=== PATIENT | male | born 1935 | race Caucasian/White ===

== ENCOUNTER → 2016-10-21 | Outpatient (CLI) | payer OTHER ==
[~2016-10-21] MED LIST: ASPI81TA28 PO; ISOS30TA35 PO; ISS/10 PO; SIMV80TA2 PO; TNR25 PO
[2016-10-21 12:31] LABS: BASO % 0.5 %; BASO ABS # 0.04 K/uL (0-0.2); COMPLETE YES; EOS % 3.4 %; HEMATOCRIT 41.2 % (42-52); IG% 0.4 %; LYMPH % 35.5 %; MEAN CORPUSCULAR HEMOGLOBIN 31.5 pg (25-34); MEAN CORPUSCULAR HGB CONC 32.8 g/dl (32-36); MEAN PLATELET VOLUME 10.1 fL (7.4-10.4); MONO % 12.1 %; NEUT % 48.1 %; PLATELET COUNT 217 K/uL (130-400); RED BLOOD COUNT 4.29 M/uL (4.7-6.1); WHITE BLOOD COUNT 8.45 K/uL (4.8-10.8)
[2016-10-21 12:48] LABS: CALCIUM 8.7 mg/dl (8.5-10.1)
[2016-10-21 12:56] LABS: ALT/SGPT 29 U/L (12-78); BLOOD UREA NITROGEN 20 mg/dl (7-18); CARBON DIOXIDE 28 mmol/L (21-32); CHLORIDE 108 mmol/L (98-107); CHOLESTEROL 111 mg/dl (0-200); GLUCOSE 122 mg/dl (70-99); POTASSIUM 4.4 mmol/L (3.5-5.1); SODIUM 143 mmol/L (136-145); TRIGLYCERIDES 89 mg/dl (0-150); VERY LOW DENSITY LIPOPROT CALC 18 mg/dl
[2016-10-21 13:01] LABS: AST/SGOT 21 U/L (15-37); CHOLESTEROL/HDL RATIO 2.8; HDL CHOLESTEROL 39 mg/dl; LDL CHOLESTEROL CALCULATED 54 mg/dl
[2016-10-21 13:21] LABS: ESTIMATED AVERAGE GLUCOSE 140 mg/dl; HA1C FLAG Normal (Normal)
== END | disposition home or self-care (01) ==
LOC: C.LABBFT 07:37
PROVIDERS: ATTEND Internal Medicine
DX: E11.9 Type 2 diabetes mellitus without complications (principal); M10.9 Gout, unspecified; D64.9 Anemia, unspecified; E78.5 Hyperlipidemia, unspecified

== ENCOUNTER → 2016-11-05 | Outpatient (CLI) | payer OTHER ==
[2016-11-09 09:50] LABS: NICOTINE URINE 7 ng/mL
--- NOTE | 2016-11-10 09:14 | CODING QUERY MEDICAL NECESSITY ---
SUPPORTING DIAGNOSIS NEEDED Yolanda OROZCO, A supporting diagnosis is required for the test/procedure performed on this patient in order for us to be reimbursed by the patient's insurance. Please provide a supporting diagnosis for the following test/procedure listed below next to the test name along with your signature. *If there is no additional diagnosis for this patient that would support the following test/procedure please document that below next to the test/procedure. Test(s)/Procedure(s) that require a supporting diagnosis: * ([id number]) NICOTINE AND CONTININE URINE DIAGNOSIS: DATE OF SERVICE: 11/05/16 Provider Signature: Date: Thank you Yeyo Menchaca Health Information Management Once completed, please kindly fax back to [phone] For questions please call [phone]
== END | disposition home or self-care (01) ==
LOC: C.LABBFT 08:02
PROVIDERS: ATTEND Physician Assistant
DX: Z01.818 Encounter for other preprocedural examination (principal); Z72.0 Tobacco use

== ENCOUNTER → 2016-12-01 | Outpatient (CLI) | payer OTHER ==
[2016-12-01 18:28] LABS: BASO % 0.4 %; BASO ABS # 0.04 K/uL (0-0.2); COMPLETE YES; EOS % 3.4 %; HEMATOCRIT 43.3 % (42-52); IG% 0.5 %; LYMPH % 40.9 %; LYMPH ABS # 3.77 K/uL (1.2-3.4); MEAN CELL VOLUME 92.1 fL (80-100); MEAN CORPUSCULAR HGB CONC 32.6 g/dl (32-36); MEAN PLATELET VOLUME 9.9 fL (7.4-10.4); MONO % 13.9 %; NEUT % 40.9 %; PLATELET COUNT 246 K/uL (130-400); WHITE BLOOD COUNT 9.21 K/uL (4.8-10.8)
[2016-12-01 18:37] LABS: PROTHROMBIN TIME (PATIENT) 10.4 SECONDS (9.0-12.0)
[2016-12-01 18:45] LABS: BLOOD UREA NITROGEN 21 mg/dl (7-18); BUN/CREATININE RATIO 19.2 (10-20); CARBON DIOXIDE 26 mmol/L (21-32); CHLORIDE 108 mmol/L (98-107); GLUCOSE 83 mg/dl (70-99); SODIUM 140 mmol/L (136-145)
== END | disposition home or self-care (01) ==
LOC: C.LAB 17:01
PROVIDERS: ATTEND Physician Assistant
DX: Z01.812 Encounter for preprocedural laboratory examination (principal); H02.831 Dermatochalasis of right upper eyelid; H02.834 Dermatochalasis of left upper eyelid

== ENCOUNTER → 2016-12-12 | Day surgery (SDC) | payer OTHER ==
[2016-12-04 08:29] VITALS: Ht 170.2 cm; Wt 81.8 kg
[~2016-12-12] VITALS: Ht 170.2 cm; Wt 81.8 kg
[~2016-12-12] MED LIST changes: +ACETAMINOPHEN 325 MG TAB PO PRN; +ARTIFICIAL TEARS OP OINT 3.5 GM TUBE ONE; +ATROPINE SULFATE 0.1 MG/ML 5ML SYR IV PRN; +BACITRACIN OINT 15 GM TUBE ONE; +BACITRACIN OP OINT 3.5 GM TUBE ONE; +CEFAZOLIN 2000 MG/60 ML D5W IV SCH; +DEXAMETHASONE SOD INJ 4 MG/ML VIAL ONE; +EpHEDrine SULFATE 50MG/5ML SYR ONE; +EpHEDrine SULFATE INJ 50 MG/ML AMP IV PRN; +FENTANYL CITRATE INJ 50 MCG/1 ML 2 ML VIAL IV PRN; +FENTANYL CITRATE INJ 50 MCG/1 ML 2 ML VIAL ONE; +GENTIAN VIOLET TOP SOLN DROP CHARGE TOP ONE; -ISOS30TA35 PO; +LACTATED RINGER'S 1000ML 1,000 ML IV SCH; +LIDOCAINE HCL 2% 2 ML VIAL (20MG/ML) ONE; +LIDOCAINE/EPINEPHRINE 2% 1:200,000 20 ML SDV INJ ONE; +METOCLOPRAMIDE HCL INJ 5 MG/ML 2 ML VIAL IV PRN; +MIDAZOLAM HCL 1 MG/ML 2ML VIAL ONE; +ONDANSETRON INJ 2 MG/ML 2 ML VIAL IV PRN; +ONDANSETRON INJ 2 MG/ML 2 ML VIAL ONE; +OXYCODONE/ACETAMINOPHEN 5-325 TAB PO PRN; +POVIDONE-IODINE OP SOLN 30 ML BTL TOP ONE; +PROPOFOL IV EMULSION 10 MG/ML 20 ML VIAL IV ONE; +SODIUM CHLORIDE 0.9% 1000ML 1,000 ML IV SCH
--- NOTE | 2016-12-12 08:47 | History & Physical Bridge - [place] ---
H&P Re-Evaluation Bridge Note: I have examined the patient, reviewed the History & Physical and in the interval since the performance of the History & Physical I have noted the following changes of clinical significance: No changes noted
--- NOTE | 2016-12-12 09:58 | [facility] Post Operative Brief Note ---
Immediate Operative Summary Operative Date Dec 12, 2016. Pre-Operative Diagnosis Dermatochalasis Post-Operative Diagnosis Same Procedure(s) Performed Bilateral Upper Blepharoplasty Surgeon Dr. Ann Loco MD Blower Insulator Surgeon(s) Ann Guerrero PA-C Estimated Blood Loss 1 Findings none Specimens none Anesthesia general Complication(s) None Disposition Recovery Room / PACU
--- NOTE | 2016-12-12 10:03 | Discharge Instructions ---
Discharge Instructions Date of Service Dec 12, 2016. Admission Reason for Admission: Dermatochalasis Discharge Discharge Diagnosis / Problem: dermatochalasis Discharge Goals Goal(s): Decrease discomfort Activity Recommendations Activity Limitations: per Instructions/Follow-up section ACTIVITY RECOMMENDATIONS: __Normal activities _x_No bending, lifting or straining __No driving __Driving allowed when you are off pain medications _x_Walking permitted __You should have help at home for ___ days DRESSINGS: _x_No dressings required __Keep dressings dry/in place until first office visit __Remove dressings ___ and leave dressings off __Apply ice ___ days __Remove dressings and reapply garment _x_Apply antibiotic ointment that was prescribed to you to wounds 3-4 times/day until complete BATHING: __Keep dressings dry _x_Sponge bathing permitted __Showering permitted _x_No swimming, hot tubs or soaking in a tub MEDICATIONS: Resume previous medications unless instructed otherwise by your surgeon. _x_Do not use aspirin, Motrin, Advil or Ibuprofen as these may promote bleeding. Please use Tylenol. _x_Prescription(s) provided: pain medication and antibiotic ointment were provided at your last office visit OTHER INSTRUCTIONS: __Record drain output 2-3 times per day SPECIAL CARE INSTRUCTIONS: * It is normal to have a mild fever after surgery. If your temperature is higher than 101.5 degrees F, please call the office at [phone]. * Constipation is a typical side effect of pain medication. An over-the- counter stool softener will help relieve this. * Leaking around surgical drains may occur and should not cause concern. Sometimes these drains become clogged. If this happens, remove the bulb and milk the clot out of the tube, then replace the bulb. * Drainage from wounds after liposuction is normal and should be expected. Garments will become soiled. You should protect furniture and bedding. This drainage should mostly subside within 2-3 days. Leave garments in place unless instructed to remove them. * If you have unusual drainage from a wound or are concerned you have an infection or have any questions or concerns, please call the office at [phone]. FOLLOW UP VISIT: If not already scheduled, please call the office, , when you return home after surgery to schedule an appointment to be seen in _3__ days. . Current Hospital Diet Patient's current hospital diet: Discharge Diet Recommended Diet: Regular Diet Procedures Procedures Performed: Bilateral Upper Blepharoplasty Pending Studies Studies pending at discharge: no Laboratory Results Hemoglobin A1c Test 10/21/16 07:40 Range/Units Estimated Average Glucose 140 mg/dl Hemoglobin A1c 6.5 H 4.5-5.6 % Lipid Panel Test 10/21/16 07:40 Range/Units Triglycerides Level 89 0-150 mg/dl Cholesterol Level 111 0-200 mg/dl HDL Cholesterol 39 mg/dl Cholesterol/HDL Ratio 2.8 LDL Cholesterol, Calculated 54 mg/dl Medical Emergencies . Who to Call and When: Medical Emergencies: If at any time you feel your situation is an emergency, please call 911 immediately. . Non-Emergent Contact Non-Emergency issues call your: Primary Care Provider, Surgeon . "Provider Documentation" section prepared by Faustina Guerrero. . VTE Core Measure Inpt VTE Proph given/why not?: SCD's [place] Drug Monitoring Program Search Results: no issues identified
--- NOTE | 2016-12-12 10:55 | Anesthesia Progress Nt - [facility] ---
Anesthesia Post Op Note Date & Time Dec 12, 2016 at 10:55 Vital Signs Pain Intensity: 0 Vital Signs Past 12 Hours Date Time Temp Pulse Resp B/P (MAP) Pulse Ox O2 Delivery O2 Flow Rate FiO2 12/12/16 10:39 36.6 12/12/16 10:36 139/80 (97) 12/12/16 10:35 62 9 12/12/16 10:35 61 9 93 12/12/16 10:31 132/79 (88) 12/12/16 10:31 Room Air 12/12/16 10:30 61 17 96 12/12/16 10:30 61 17 12/12/16 10:26 132/75 (84) 12/12/16 10:25 63 17 12/12/16 10:25 63 17 97 12/12/16 10:20 62 9 134/76 (89) 97 12/12/16 10:20 62 9 12/12/16 10:15 61 12 132/73 (87) 97 12/12/16 10:15 60 12 12/12/16 10:11 129/68 (76) 12/12/16 10:10 58 12 12/12/16 10:10 58 12 97 12/12/16 10:06 133/72 (101) 12/12/16 10:05 66 17 12/12/16 10:05 65 17 97 12/12/16 10:02 134/77 (85) 12/12/16 10:00 36.4 63 16 134/77 98 Diffusion Mask 5 12/12/16 07:31 36.3 55 16 112/67 (82) 55 Room Air Notes Mental Status: alert / awake / arousable, participated in evaluation Pt Amnestic to Procedure: Yes Nausea / Vomiting: adequately controlled Pain: adequately controlled Airway Patency, RR, SpO2: stable & adequate BP & HR: stable & adequate Hydration State: stable & adequate Anesthetic Complications: no major complications apparent
[2016-12-12 11:40] VITALS: BP 145/78; PULSE 59; TEMP 36.4; O2SAT 93
--- NOTE | 2016-12-13 08:19 | OPERATIVE REPORT ---
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 POSTOPERATIVE DIAGNOSIS: Same. PROCEDURE: Bilateral noncosmetic upper blepharoplasty. SURGEON: Dr. Isidra Loco. [employer] DRILLING MACHINE OPERATOR: Faustina Guerrero PA-C. ANESTHESIA: General. COMPLICATIONS: None. INDICATION FOR THE PROCEDURE: The patient is a 81-year-old male who presented to my office with visual field obstruction and failed visual field testing as a result of excess skin of his upper eyelids. After discussion, I felt he would be a candidate for noncosmetic upper blepharoplasty in an effort to improve his visual estes. BRIEF DESCRIPTION OF THE PROCEDURE: The risks, benefits and alternatives of the procedure were explained to the patient, who agreed and signed consent. He was identified and marked in the preoperative holding area. He was brought to the operating room, positioned supine and placed under general anesthesia without incident. Surgical site was prepped and draped sterilely. A time-out procedure was performed. Surgical site markings were applied. Inferior aspects of the incisional markings were applied along the supratarsal crease bilaterally, which measured 8 mm above the ciliary margin and midpupillary line. Due to significant excess skin in the lateral canthal area, this incision was carried out into the holy cross's feet of the lateral canthal area. Medially, the incision was made such to avoid crossing the medial punctum. A trapezoidal shaped incision was marked. This was marked greater than 1 cm inferior to the lateral tail of the brow. Prior to beginning the procedure, corneal protectors with Lacri-Lube were placed. 1% lidocaine with epinephrine was used to anesthetize the upper eyelids bilaterally. I began with the left side. A 15 blade scalpel was used to make the trapezoidal shaped incision. The skin was elevated off of the underlying orbicularis musculature using electrocautery. Hemostasis was achieved with electrocautery. There was minimal medial fat herniation noted on exam and therefore, I did not open the medial compartment. 6-0 nylon sutures were used to reapproximate the incisions, taking a bite of orbicularis muscle with each suture. A similar procedure was undertaken on the right side. There was excellent symmetry between the sides following the procedure. Corneal protectors were removed and the eyes were irrigated with BSS. Bacitracin ophthalmic ointment was applied. The procedure was tolerated well. The patient was awakened and transferred to the recovery room in satisfactory condition. No complications. I attest to the content of the Intraoperative Record and any orders documented therein. Any exception s are noted below.
== END | disposition home or self-care (01) ==
LOC: X.SURG 07:19
PROVIDERS: ATTEND Plastic Surgery
DX: H02.834 Dermatochalasis of left upper eyelid (principal); H02.831 Dermatochalasis of right upper eyelid; I71.4 Abdominal aortic aneurysm, without rupture; D64.9 Anemia, unspecified; I25.10 Atherosclerotic heart disease of native coronary artery without angina pectoris; I25.2 Old myocardial infarction; I10 Essential (primary) hypertension; E78.00 Pure hypercholesterolemia, unspecified; E11.9 Type 2 diabetes mellitus without complications; M10.9 Gout, unspecified; F17.210 Nicotine dependence, cigarettes, uncomplicated; Z95.5 Presence of coronary angioplasty implant and graft; Z79.82 Long term (current) use of aspirin; Z79.899 Other long term (current) drug therapy

== ENCOUNTER → 2017-04-30 | Outpatient (CLI) | payer OTHER ==
[~2017-04-30] MED LIST changes: -ACETAMINOPHEN 325 MG TAB PO PRN; -ARTIFICIAL TEARS OP OINT 3.5 GM TUBE ONE; -ASPI81TA28 PO; -ATROPINE SULFATE 0.1 MG/ML 5ML SYR IV PRN; -BACITRACIN OINT 15 GM TUBE ONE; -BACITRACIN OP OINT 3.5 GM TUBE ONE; -CEFAZOLIN 2000 MG/60 ML D5W IV SCH; -DEXAMETHASONE SOD INJ 4 MG/ML VIAL ONE; -EpHEDrine SULFATE 50MG/5ML SYR ONE; -EpHEDrine SULFATE INJ 50 MG/ML AMP IV PRN; -FENTANYL CITRATE INJ 50 MCG/1 ML 2 ML VIAL IV PRN; -FENTANYL CITRATE INJ 50 MCG/1 ML 2 ML VIAL ONE; -GENTIAN VIOLET TOP SOLN DROP CHARGE TOP ONE; -LACTATED RINGER'S 1000ML 1,000 ML IV SCH; -LIDOCAINE HCL 2% 2 ML VIAL (20MG/ML) ONE; -LIDOCAINE/EPINEPHRINE 2% 1:200,000 20 ML SDV INJ ONE; -METOCLOPRAMIDE HCL INJ 5 MG/ML 2 ML VIAL IV PRN; -MIDAZOLAM HCL 1 MG/ML 2ML VIAL ONE; -ONDANSETRON INJ 2 MG/ML 2 ML VIAL IV PRN; -ONDANSETRON INJ 2 MG/ML 2 ML VIAL ONE; -OXYCODONE/ACETAMINOPHEN 5-325 TAB PO PRN; -POVIDONE-IODINE OP SOLN 30 ML BTL TOP ONE; -PROPOFOL IV EMULSION 10 MG/ML 20 ML VIAL IV ONE; -SODIUM CHLORIDE 0.9% 1000ML 1,000 ML IV SCH
[2017-04-30 12:17] LABS: BASO % 0.5 %; BASO ABS # 0.04 K/uL (0-0.2); COMPLETE YES; EOS % 2.6 %; HEMATOCRIT 41.1 % (42-52); IG% 0.2 %; LYMPH % 33.1 %; LYMPH ABS # 2.93 K/uL (1.2-3.4); MEAN CELL VOLUME 96.7 fL (80-100); MEAN CORPUSCULAR HEMOGLOBIN 31.8 pg (25-34); MEAN CORPUSCULAR HGB CONC 32.8 g/dl (32-36); MEAN PLATELET VOLUME 10.3 fL (7.4-10.4); MONO % 13.3 %; NEUT % 50.3 %; PLATELET COUNT 217 K/uL (130-400); RED BLOOD COUNT 4.25 M/uL (4.7-6.1); WHITE BLOOD COUNT 8.86 K/uL (4.8-10.8)
[2017-04-30 12:25] LABS: ESTIMATED AVERAGE GLUCOSE 140 mg/dl; HA1C FLAG Normal (Normal)
[2017-04-30 12:27] LABS: ALT/SGPT 35 U/L (12-78); AST/SGOT 24 U/L (15-37); BLOOD UREA NITROGEN 16 mg/dl (7-18); CALCIUM 8.6 mg/dl (8.5-10.1); CARBON DIOXIDE 26 mmol/L (21-32); CHLORIDE 107 mmol/L (98-107); CHOLESTEROL 120 mg/dl (0-200); CREATININE 1.11 mg/dl (0.60-1.40); GLUCOSE 121 mg/dl (70-99); POTASSIUM 4.2 mmol/L (3.5-5.1); SODIUM 139 mmol/L (136-145)
[2017-04-30 12:36] LABS: CHOLESTEROL/HDL RATIO 2.6; FERRITIN 199.3 ng/ml (8.0-388.0); HDL CHOLESTEROL 47 mg/dl; LDL CHOLESTEROL CALCULATED 58 mg/dl; TRIGLYCERIDES 73 mg/dl (0-150); VERY LOW DENSITY LIPOPROT CALC 15 mg/dl
== END | disposition home or self-care (01) ==
LOC: C.LABBFT 07:23
PROVIDERS: ATTEND Internal Medicine
DX: E78.00 Pure hypercholesterolemia, unspecified (principal); E11.9 Type 2 diabetes mellitus without complications; D64.9 Anemia, unspecified

== ENCOUNTER → 2017-10-14 | Outpatient (CLI) | payer OTHER | END | disposition home or self-care (01) | LOC: C.LABBFT 07:45 | PROVIDERS: ATTEND Internal Medicine Cardiovascular Disease | DX: I25.10 Atherosclerotic heart disease of native coronary artery without angina pectoris (principal) ==

== ENCOUNTER 2025-01-02 14:57 | Inpatient (IN) ==
[2025-01-02] MEDS ORDERED: MoRPHine SULFATE 2 MG/ML CARP IV PRN (15:07)
[2025-01-02] MEDS: ONDANSETRON INJ 2 MG/ML 2 ML VIAL IV STA (15:16)
[2025-01-02] MEDS: SODIUM CHLORIDE 0.9% 500 ML IV SCH (15:16)
[2025-01-02] MEDS: MoRPHine SULFATE 2 MG/ML CARP IV STA (15:16)
--- NOTE | 2025-01-02 15:21 | XRay Report ---
XR chest 1V portable CLINICAL HISTORY: Trauma COMPARISON STUDY: 01/07/2021 FINDINGS: Stable mild cardiomegaly without pulmonary vascular congestion. Inspiration is shallow. No consolidation or pleural effusion seen. No pneumothorax. IMPRESSION: No acute findings seen. ACT 112: Negative or not required by law. Electronically signed by: Ciro Niño M.D. 01/02/2025 3:20 PM
[2025-01-02] MEDS: OPTIRAY 320 100ml IV ONE (15:24)
--- NOTE | 2025-01-02 15:28 | Emergency Department Note ---
Impression & Plan SOB (shortness of breath), Elevated troponin, Right rib fracture, Fall, Acute electrocardiogram changes, Leukocytosis ED Provider Note NAME: IAIN MARTÍNEZ AGE: 89 SEX: M : 1935 ARRIVES VIA: Walk-In INFORMANT: [Patient] ED PROVIDER(S): [Ash Bejarano MD] CHIEF COMPLAINT: Trauma HISTORY OF PRESENT ILLNESS: The patient is an 89-year-old male who states he fell around 3 or 4 feet off of a ladder onto his back. No loss of consciousness. He was trimming a tree when this occurred. He is on aspirin but no other stronger blood thinners. The patient states that initially, he was not in too much pain but, in the last hour or so, he has had increasing pain in the right lateral ribs and it hurts to take a breath and actually takes away his breath. There was no complaints of neck pain, mid back pain, abdominal pain. No numbness or tingling in the extremities. No pain in the upper or lower extremities. PMHx/PSHx/Social Hx: See Below PHYSICAL EXAM: Primary Survey Airway: Intact Breathing: Breath sounds equal bilaterally. No respiratory distress Circulation: Skin warm, capillary refill less than 2 seconds Disability: Pupils equal and reactive to light Motor Function: Moves all extremities. Sensory: No deficits Secondary Survey GEN: Well developed and well-nourished HEAD: Normocephalic, atraumatic EYES: Pupils round and reactive to light, conjunctiva clear, extraocular movements intact ENT: No fluid in external acoustic canals, nares patent, oropharynx clear NECK: Midline trachea, c-collar in place. HEART: Regular rate and rhythm LUNGS: Clear to auscultation bilaterally CHEST: Chest wall is somewhat tender over the right lateral lower ribs, there is no contusion or crepitus. ABD: No contusions, soft, non-tender, no distention PELVIS: Stable to rock BACK: No step offs or deformities, T-L spine non tender EXT: Moving all extremities well, no gross deformities NEURO: No focal motor deficits, no sensory deficits DIFFERENTIAL DIAGNOSIS: Rib fracture, pneumothorax, pulmonary contusion, thoracic or lumbar fracture, intra-abdominal injury, C-spine injury, intracranial injury, among others. EMERGENCY DEPARTMENT PROCEDURES: C-spine clinically cleared at 1605, once the CT imaging returned. MEDICAL DECISION MAKING: There is a mild leukocytosis, this could be consistent with infection or just the stress of his presentation. There is a very subtle anemia with a hemoglobin of 13.2. There was a normal platelet count. No coagulopathy. There was a slight elevation of the creatinine indicating some mild dehydration. No electrolyte abnormality in need of emergent correction. No worrisome liver enzyme elevation. No evidence for pancreatitis. ECG shows a sinus rhythm with some T wave inversions and subtle depressions across the anterior leads. These changes were new. No ST elevation. Cardiac enzyme testing x 2 is somewhat elevated but stable. Chest x-ray did not show any pulmonary injury or pneumothorax. Brain CT showed no acute bleed or mass effect. C-spine CT showed no acute fracture. Thoracic and lumbar CTs did not show any acute fracture. Chest and abdominal CT scans showed 4 right-sided rib fractures without pneumothorax or pulmonary contusion. No intra-abdominal traumatic process found. On exam, the patient was not hypoxic or toxic. He complained of right lateral lower rib pain. The patient received IV morphine for pain, IV saline for hydration. He was given IV Zofran for nausea. He was given IV Toradol and IV Tylenol. I did speak with cardiology. Given the troponin elevation, given the ECG changes, observation, cardiac monitoring was felt warranted. The patient has fallen. He has suffered 4 rib fractures. He has some ECG changes and a mild elevation to the troponin. Given the findings, given his age and history, admission/observation is warranted. I spoke with the patient and his family. I spoke with case management, the on- call hospitalist was consulted. Prior/Outside records/notes reviewed: None ECG per my interpretation: Indication was trauma. The ECG shows a normal sinus rhythm with a rate of 63. There are some T wave inversions in the anterior leads. There is no ST elevation, no PVCs. The QTc is 446. Compared to an ECG from 07 January 2021, the T wave inversions anteriorly are new. Repeat ECG per my interpretation: Indication was shortness of breath and chest pain. The ECG shows a sinus bradycardia with a rate of 59. There are some ST depressions and T wave inversions in the anterior leads. No ST elevation. No PVCs. The QTc is 429. Compared to the earlier ECG today, the T wave changes appear similar. Continuous Cardiac Monitoring per my interpretation: An order was placed for continuous cardiac monitoring. The monitor shows a rate of 60 with normal sinus rhythm. Imaging/x-ray results per my interpretation: Chest x-ray shows a poor inspiratory effort. There is no obvious pulmonary contusion, no pneumothorax, no rib fracture. Chronic Medical/Social conditions affecting care: Advanced age. Care/Management discussed with: Case management, the on-call hospitalist. Cardiology-Dr. Ruff. Level of care consideration(s): After review of the information above and other included data: --I believe the patient requires escalation of care to admission Critical Care Note: I have personally spent 41 minutes of critical care time in the direct management of this patient. This includes bedside care, interpretation of diagnostic studies, and testing, discussion with consultants, patient, and family members, and other required patient management activities. This 41 minutes is in excess of all separately billable procedures. DISPOSITION: Admission Past Med/Surg History Problem List Leukocytosis (Acute) Acute electrocardiogram changes (Acute) Fall (Acute) Right rib fracture (Acute) Elevated troponin (Acute) SOB (shortness of breath) (Acute) Pancreatic abnormality Elevated troponin Ribs, multiple fractures Exertional chest pain Right inguinal pain Back pain Screening for prostate cancer Vitamin D deficiency Heart disease (Chronic) Hypotension Pneumonia Gout Dermatochalasis of both eyelids HTN (hypertension) Type 2 diabetes mellitus Hyperlipidemia Hypothyroidism Encounter for pre-operative examination History of PTCA CAD (coronary artery disease) Actinic keratosis AAA (abdominal aortic aneurysm) BEING MONITORED YEARLY (DR. CEE) Medical History History of kidney stones NO SURGERY Borderline diabetes History of skin cancer Hypothyroidism Myocardial Infarction 1994 Hypertension Hyperlipidemia History of COVID-12 MARCH 2020 (NO SYMPTOMS) Hx of gout Surgical History History of cataract surgery left cataract History of colonoscopy History of tooth extraction Chalazion of both eyes EXCISION History of cardiac cath NO STENTS (1994) Family History Father Coronary heart disease Myocardial infarction Mother No problems noted. Other Diabetes No family history of adverse response to anesthesia Denies family history of Colon cancer Ovarian cancer Prostate cancer Breast cancer Social History Smoking Status: Never smoker Tobacco Type: Cigars Age Started Using Tobacco: 22; Cigarettes Per Day: 2 CIGARS DAILY; Second Hand Exposure: No; Do You Dip or Chew Tobacco: Yes (advised npo); Hx Alcohol Use: Yes Alcohol type: beer Alcohol Intake Frequency Comment: social Hx Substance Use: No Preferred Language: Turkish Communication Ability: Effective Visual Impairment: No Limitations Hearing Ability: Normal Oxygen System Tester Required: No Beliefs That Will Affect Care: None marital status: / Current Living Situation: Alone current occupational status: retired Feels Safe at Home: Yes Childhood Exposure to Second-Hand Smoke: Yes Dental Care, Regularly: Yes Physical Activity Frequency: 3-4 Times per Week Physical Activity Frequency Comment: Very active Seatbelt Use: always Sunscreen Use: No Assistive Devices: Glasses Allergies Allergies Allergy/AdvReac Type Severity Reaction Status Date / Time No Known Drug Allergies Allergy Verified 11/17/24 08:13 Home Meds Home Medications Medication Instructions Recorded Confirmed aspirin 81 mg tablet,delayed 81 mg PO QAM 01/07/21 11/17/24 release (Sujey Low Dose Aspirin) cholecalciferol (vitamin D3) 50 50 mcg PO DAILY 11/20/21 11/17/24 mcg (2,000 unit) capsule Previous Rx's Medication Instructions Recorded atenolol 25 mg tablet 12.5 mg (1/2 x 25 mg) PO QAM #45 04/20/24 tabs levothyroxine 50 mcg tablet 50 mcg PO QAM #90 tabs 04/20/24 simvastatin 80 mg tablet 80 mg PO QPM #90 tabs 04/20/24 isosorbide mononitrate 10 mg tablet 10 mg PO BID #180 tabs 08/08/24 nitroglycerin 0.4 mg sublingual 0.4 mg sublingual Q5M PRN chest 10/11/24 tablet pain #20 tabs ranolazine 500 mg tablet,extended 500 mg PO BID #180 tabs 12/13/24 release,12 hr Results & Data (ED) Vital Signs Vital Signs - 24 hr 01/02/25 15:02 01/02/25 15:02 01/02/25 15:06 Temperature 36.7 C 36.7 C 36.7 C Temperature Source Oral Oral Pulse Rate 61 62 Pulse Rate [Apical] 66 Pulse Strength [Bilateral Femoral] Normal Respiratory Rate 18 18 18 Respiratory Effort / Characteristics Non-Labored Spontaneous Non-Labored Spontaneous Respiratory Depth Normal Normal Blood Pressure 150/79 H 150/79 H Blood Pressure [Right Arm] 150/79 H Blood Pressure Mean 102 Blood Pressure Mean [Right Arm] 102 Blood Pressure Position Sitting Blood Pressure Position [Right Arm] Sitting Pulse Oximetry 98 97 95 Oxygen Delivery Method Room Air Room Air Room Air Oxygen Flow Rate 0 Sepsis Recent Fever Within 48 Hours No Sepsis New/Unexplained Change in Mental Status No Sepsis Action Taken by Nursing No Action Required 01/02/25 15:24 01/02/25 16:02 01/02/25 17:00 Temperature 36.6 C Temperature Source Temporal Artery Scan Pulse Rate 60 Pulse Rate [Apical] 63 58 L Pulse Strength [Bilateral Femoral] Respiratory Rate 18 16 Respiratory Effort / Characteristics Non-Labored Spontaneous Respiratory Depth Normal Blood Pressure Blood Pressure [Right Arm] 126/74 129/68 Blood Pressure Mean Blood Pressure Mean [Right Arm] 91 88 Blood Pressure Position Blood Pressure Position [Right Arm] Lying Pulse Oximetry 95 97 Oxygen Delivery Method Room Air Room Air Oxygen Flow Rate Sepsis Recent Fever Within 48 Hours Sepsis New/Unexplained Change in Mental Status Sepsis Action Taken by Nursing 01/02/25 17:56 01/02/25 18:00 01/02/25 19:00 Temperature Temperature Source Pulse Rate Pulse Rate [Apical] 56 L 60 61 Pulse Strength [Bilateral Femoral] Respiratory Rate 16 16 16 Respiratory Effort / Characteristics Respiratory Depth Blood Pressure Blood Pressure [Right Arm] 135/80 132/75 134/79 Blood Pressure Mean Blood Pressure Mean [Right Arm] 98 94 97 Blood Pressure Position Blood Pressure Position [Right Arm] Pulse Oximetry 96 94 95 Oxygen Delivery Method Room Air Room Air Oxygen Flow Rate Sepsis Recent Fever Within 48 Hours Sepsis New/Unexplained Change in Mental Status Sepsis Action Taken by Nursing 01/02/25 19:04 Temperature Temperature Source Pulse Rate 60 Pulse Rate [Apical] Pulse Strength [Bilateral Femoral] Respiratory Rate Respiratory Effort / Characteristics Respiratory Depth Blood Pressure Blood Pressure [Right Arm] Blood Pressure Mean Blood Pressure Mean [Right Arm] Blood Pressure Position Blood Pressure Position [Right Arm] Pulse Oximetry Oxygen Delivery Method Oxygen Flow Rate Sepsis Recent Fever Within 48 Hours Sepsis New/Unexplained Change in Mental Status Sepsis Action Taken by [facility] Medications Current Medication List: was personally reviewed by me Laboratory Data Attestation: I reviewed the patient's lab results. 01/02/25 15:10 01/02/25 15:10 Lab Results 01/02/25 01/02/25 01/02/25 Range/Units 15:10 15:14 17:09 WBC 14.03 H (4.8-10.8) K/ul RBC 4.12 L (4.70-6.10) M/uL Hgb 13.2 L (14.0-18.0) g/dl POC Hgb 13.9 L (14.0-18.0) g/dl Hct 39.0 L (42.0-52.0) % POC Hct 41 L (42-52) % MCV 94.7 (80.0-100.0) fL MCH 32.0 (25.0-34.0) pg MCHC 33.8 (32.0-36.0) g/dL RDW Std Deviation 48.9 H (36.4-46.3) fL RDW Coeff of Prestno 14.0 (11.5-14.5) % Plt Count 213 (130-400) K/uL MPV 11.7 (9.4-12.4) fL Immature Gran % (Auto) 0.6 % Neut % (Auto) 76.1 % Lymph % (Auto) 13.6 % Faulk % (Auto) 9.3 % Eos % (Auto) 0.1 % Baso % (Auto) 0.3 % Neut # (Auto) 10.66 H (1.40-6.50) K/uL Lymph # (Auto) 1.91 (1.20-3.40) K/uL Faulk # (Auto) 1.31 H (0.11-0.59) K/uL Eos # (Auto) 0.02 (0.00-0.50) K/uL Baso # (Auto) 0.04 (0.00-0.20) K/uL Immature Gran # (Auto) 0.09 (0.01-0.20) K/uL Platelet Estimate Normal (Normal) PT 11.0 (9.0-12.0) Seconds INR 1.0 (0.9-1.1) APTT 24 (21-31) Seconds PTT Ratio 0.9 POC Sodium 139 (135-144) mmol/L Sodium 137 (136-145) mmol/L POC Potassium 4.5 (3.3-5.0) mmol/L Potassium 4.5 (3.5-5.1) mmol/L POC Chloride 105 (101-112) mmol/L Chloride 106 (98-107) mmol/L Carbon Dioxide 25 (21-32) mmol/L POC Total CO2 23 L (24-31) mmol/L Anion Gap 6 (3-11) POC Anion Gap 16.0 (16-25) mmol/L POC BUN 23 H (7-18) mg/dl BUN 24 H (6-23) mg/dl Creatinine 1.46 H (0.6-1.4) mg/dl POC Creatinine 1.6 H (0.6-1.3) mg/dl Est Cr Clr Drug Dosing 33.3 ml/min eGFR 46.26 BUN/Creatinine Ratio 16.4 (10-20) Glucose 122 H (70-99(Fasting)) mg/dl POC Glucose (other) 122 H (70-99) mg/dl Calcium 9.4 (8.6-10.3) mg/dl POC Ioniz Calcium Jolanta 1.20 (1.12-1.32) mmol/l Total Bilirubin 1.0 (0.2-1.0) mg/dl AST 26 (13-39) U/L ALT 20 (7-52) U/L Alkaline Phosphatase 61 (34-104) U/L Troponin I High Sens 119.2 H* 113.1 H* (0-20) pg/ml Total Protein 7.5 (6.0-8.3) gm/dl Albumin 4.4 (3.4-5.0) gm/dl Globulin 3.1 (2.5-4.0) gm/dl Albumin/Globulin Ratio 1.4 (0.9-2) Lipase 51 (11-82) U/L Administered Medications Discontinued Medications Sodium Chloride (Nss) 500 mls @ 999 mls/hr IV .Q31M [place] Stop: 01/02/25 15:45 Last Infusion: 01/02/25 15:52 Dose: Infused Documented By: [email or web address] Admin: 01/02/25 15:16 Dose: 999 mls/hr Documented By: CC Acetaminophen (Ofirmev) 1,000 mg in 100 mls @ 400 mls/hr IV NOW STA Stop: 01/02/25 16:02 Last Infusion: 08/11/25 16:15 Dose: Infused Documented By: Admin: 01/02/25 15:52 Dose: 400 mls/hr Documented By: coco Sodium Chloride (Nss) 500 mls @ 999 mls/hr IV .Q31M ONE Stop: 01/02/25 16:54 Last Infusion: 01/02/25 17:21 Dose: Infused Documented By: Admin: 01/02/25 16:34 Dose: 999 mls/hr Documented By: CC Ioversol (Optiray 320 100ml) 93 ml IV ONCE ONE Stop: 01/02/25 15:25 Last Admin: 01/02/25 15:24 Dose: 93 ml Documented By: GES Ketorolac Tromethamine (Ketorolac Tromethamine 15 Mg/Ml Vial) 10 mg IV NOW ONE Stop: 01/02/25 16:25 Last Admin: 01/02/25 16:33 Dose: 10 mg Documented By: CC Morphine Sulfate (Morphine Sulfate 2 Mg/Ml Carp) 2 mg IV NOW STA Stop: 01/02/25 15:08 Last Admin: 01/02/25 15:16 Dose: 2 mg Documented By: CC Ondansetron HCl (Ondansetron Inj 2 Mg/Ml 2 Ml Vial) 4 mg IV NOW STA Stop: 01/02/25 15:08 Last Admin: 01/02/25 15:16 Dose: 4 mg Documented By: CC Imaging Data Radiologist's Impression: Abdomen/Pelvis CT 01/02/25 15:[address] WITH CONTRAST; CT ABDOMEN AND PELVIS WITH IV CONTRAST ONLY CT DOSE: 3555.06 mGy.cm HISTORY: Acute chest and abdominal trauma with right-sided rib pain Trauma TECHNIQUE: Multiaxial CT images of the chest, abdomen and pelvis were performed following the IV administration of 93 cc of Optiray. A dose lowering technique was utilized adhering to the principles of ALARA. COMPARISON: CT thoracic spine of same day FINDINGS: CT CHEST: Unremarkable thyroid. No lymphadenopathy or mediastinal hematoma. Mild cardiomegaly with extensive coronary artery calcifications. Atherosclerosis of the aorta without aneurysm. No pulmonary embolus. No pneumothorax, pleural effusion, airspace consolidation or pulmonary edema. Mild dependent subsegmental bibasilar atelectasis. Left-sided pleural calcifications. Central airways are patent. Unremarkable soft tissues. Degenerative changes of the shoulders and spine. Acute nondisplaced fractures of the posterior right seventh through tenth ribs. Probable healed chronic fracture of the anterior left third rib. No definite thoracic spine fracture identified. CT ABDOMEN/PELVIS: No pneumatosis or pneumoperitoneum. Unremarkable spleen, gallbladder, adrenal glands and liver. Patent portal vein. Scattered parenchymal calcifications of the pancreas compatible with chronic pancreatitis. A 7 x 4 x 13 mm calcification is noted in the pancreatic head on image 128 series 13. There is an adjacent 1.5 cm water attenuation focus which may represent a sidebranch IPMN. Alternatively this may represent pancreatic ductal dilation. Prostamegaly. Unremarkable kidneys without hydronephrosis. Atherosclerosis aorta with fusiform infrarenal aneurysmal dilation measuring 4.0 x 3.6 cm. There is no lymphadenopathy. Colonic diverticulosis without acute diverticulitis. Mild colonic fecal retention. Normal appendix. No acute fracture identified. IMPRESSION: 1. Acute nondisplaced right posterior seventh through tenth rib fractures. No pneumothorax. 2. No acute posttraumatic intra-abdominal or intrapelvic abnormality. 3. Evidence of chronic pancreatitis with 13 mm calcification noted within the pancreatic head. 4. Infrarenal abdominal aortic aneurysm measures 4 cm. 5. Additional findings as above. ACT 112: Negative or not required by law. Electronically signed by: Goran Ramirez M.D. 01/02/2025 4:[address] 01/02/25 15:10 CT cervical spine wo con CLINICAL HISTORY: Trauma. COMPARISON: None TECHNIQUE: Multiple axial CT images of the cervical spine were obtained without contrast. A dose lowering technique was utilized adhering to the principles of ALARA. FINDINGS: There is moderate degenerative disc disease of the cervical spine. No fracture or subluxation seen. There are carotid bulb calcifications. IMPRESSION: No cervical spine fracture seen. ACT 112: Negative or not required by law. The above report was generated using voice recognition software. It may contain grammatical, syntax or spelling errors. Electronically signed by: Ciro Niño M.D. 01/02/2025 3:[address] 01/02/25 15:[address] WITH CONTRAST; CT ABDOMEN AND PELVIS WITH IV CONTRAST ONLY CT DOSE: 3555.06 mGy.cm HISTORY: Acute chest and abdominal trauma with right-sided rib pain Trauma TECHNIQUE: Multiaxial CT images of the chest, abdomen and pelvis were performed following the IV administration of 93 cc of Optiray. A dose lowering technique was utilized adhering to the principles of ALARA. COMPARISON: CT thoracic spine of same day FINDINGS: CT CHEST: Unremarkable thyroid. No lymphadenopathy or mediastinal hematoma. Mild cardiomegaly with extensive coronary artery calcifications. Atherosclerosis of the aorta without aneurysm. No pulmonary embolus. No pneumothorax, pleural effusion, airspace consolidation or pulmonary edema. Mild dependent subsegmental bibasilar atelectasis. Left-sided pleural calcifications. Central airways are patent. Unremarkable soft tissues. Degenerative changes of the shoulders and spine. Acute nondisplaced fractures of the posterior right seventh through tenth ribs. Probable healed chronic fracture of the anterior left third rib. No definite thoracic spine fracture identified. CT ABDOMEN/PELVIS: No pneumatosis or pneumoperitoneum. Unremarkable spleen, gallbladder, adrenal glands and liver. Patent portal vein. Scattered parenchymal calcifications of the pancreas compatible with chronic pancreatitis. A 7 x 4 x 13 mm calcification is noted in the pancreatic head on image 128 series 13. There is an adjacent 1.5 cm water attenuation focus which may represent a sidebranch IPMN. Alternatively this may represent pancreatic ductal dilation. Prostamegaly. Unremarkable kidneys without hydronephrosis. Atherosclerosis aorta with fusiform infrarenal aneurysmal dilation measuring 4.0 x 3.6 cm. There is no lymphadenopathy. Colonic diverticulosis without acute diverticulitis. Mild colonic fecal retention. Normal appendix. No acute fracture identified. IMPRESSION: 1. Acute nondisplaced right posterior seventh through tenth rib fractures. No pneumothorax. 2. No acute posttraumatic intra-abdominal or intrapelvic abnormality. 3. Evidence of chronic pancreatitis with 13 mm calcification noted within the pancreatic head. 4. Infrarenal abdominal aortic aneurysm measures 4 cm. 5. Additional findings as above. ACT 112: Negative or not required by law. Electronically signed by: Goran Ramirez M.D. 01/02/2025 4:09 PM Chest X-Ray 01/02/25 15:10 XR chest 1V portable CLINICAL HISTORY: Trauma COMPARISON STUDY: 01/07/2021 FINDINGS: Stable mild cardiomegaly without pulmonary vascular congestion. Inspiration is shallow. No consolidation or pleural effusion seen. No pneumothorax. IMPRESSION: No acute findings seen. ACT 112: Negative or not required by law. Electronically signed by: Ciro Niño M.D. 01/02/2025 3:[address] 01/02/25 15:10 CT head/brain wo con CLINICAL HISTORY: Trauma. TECHNIQUE: Multiple axial CT images of the head were obtained without contrast. A dose lowering technique was utilized adhering to the principles of ALARA. COMPARISON: None FINDINGS: There is moderate chronic small vessel ischemic change. No intracranial hemorrhage seen. No mass effect, midline shift, or hydrocephalus. No skull fractures seen. Visualized mastoid air cells and paranasal sinuses are clear. IMPRESSION: No acute findings. ACT 112: Negative or not required by law. The above report was generated using voice recognition software. It may contain grammatical, syntax or spelling errors. Electronically signed by: Ciro Niño M.D. 01/02/2025 3:[address] 01/02/25 15:10 CT lumbar spine w con CLINICAL HISTORY: Trauma COMPARISON STUDY: X-ray of 07/08/2023. FINDINGS: There is moderate diffuse degenerative disc disease. There is osteopenia. No acute fracture or subluxation seen. Stable infrarenal abdominal aortic aneurysm measuring 3.6 cm greatest AP dimension. There are small areas of sclerosis inferiorly and laterally in the sacrum bilaterally adjacent to the SI joints which could represent chronic mild sacroiliitis or old healed sacral insufficiency fractures. IMPRESSION: No acute fracture seen of the lumbar spine. ACT 112: Negative or not required by law. Electronically signed by: Ciro Niño M.D. 01/02/2025 3:[address] 01/02/25 15:10 CT thoracic spine w con CLINICAL HISTORY: trauma COMPARISON STUDY: None FINDINGS: There is osteopenia. There are mild diffuse degenerative changes. There is mild chronic-appearing height loss at a few mid and lower thoracic vertebral bodies. No acute fracture or subluxation seen at the thoracic spine. No paraspinous soft tissue hematoma seen. IMPRESSION: No acute fracture seen of the thoracic spine. ACT 112: Negative or not required by law. Electronically signed by: Ciro Niño M.D. 01/02/2025 3:53 PM Discharge Plan Visit Data Chief Complaint: Trauma Stated Complaint: FELL TREE TRIMMING - ON BACK ED Provider: Ash Bejarano Discharge Problem: SOB (shortness of breath), Elevated troponin, Right rib fracture, Fall, Acute electrocardiogram changes, Leukocytosis Patient Disposition: Admitted As Inpatient Condition: Serious Discharge Problem: Right rib fracture Qualifiers: Encounter type: initial encounter Rib fracture type: multiple ribs Fracture type: closed Qualified Code(s): S22.41XA - Multiple fractures of ribs, right side, initial encounter for closed fracture Fall Qualifiers: Encounter type: initial encounter Qualified Code(s): W19.XXXA - Unspecified fall, initial encounter Leukocytosis Qualifiers: Leukocytosis type: unspecified Qualified Code(s): D72.829 - Elevated white blood cell count, unspecified
--- NOTE | 2025-01-02 15:47 | CT Scan Report ---
CT head/brain wo con CLINICAL HISTORY: Trauma. TECHNIQUE: Multiple axial CT images of the head were obtained without contrast. A dose lowering tech nique was utilized adhering to the principles of ALARA. COMPARISON: None FINDINGS: There is moderate chronic small vessel ischemic change. No intracranial hemorrhage seen. No mass effect, midline shift, or hydrocephalus. No skull fractures seen. Visualized mastoid air cells and paranasal sinuses are clear. IMPRESSION: No acute findings. ACT 112: Negative or not required by law. The above report was generated using voice recognition software. It may contain grammatical, syntax o r spelling errors. Electronically signed by: Ciro Niño M.D. 01/02/2025 3:46 PM
--- NOTE | 2025-01-02 15:50 | CT Scan Report ---
CT cervical spine wo con CLINICAL HISTORY: Trauma. COMPARISON: None TECHNIQUE: Multiple axial CT images of the cervical spine were obtained without contrast. A dose low ering technique was utilized adhering to the principles of ALARA. FINDINGS: There is moderate degenerative disc disease of the cervical spine. No fracture or subluxati on seen. There are carotid bulb calcifications. IMPRESSION: No cervical spine fracture seen. ACT 112: Negative or not required by law. The above report was generated using voice recognition software. It may contain grammatical, syntax o r spelling errors. Electronically signed by: Ciro Niño M.D. 01/02/2025 3:48 PM
[2025-01-02] MEDS: ACETAMINOPHEN 1,000 MG/100 ML VIAL IV STA (15:52)
--- NOTE | 2025-01-02 15:55 | CT Scan Report ---
CT thoracic spine w con CLINICAL HISTORY: trauma COMPARISON STUDY: None FINDINGS: There is osteopenia. There are mild diffuse degenerative changes. There is mild chronic-jody earing height loss at a few mid and lower thoracic vertebral bodies. No acute fracture or subluxation seen at the thoracic spine. No paraspinous soft tissue hematoma seen. IMPRESSION: No acute fracture seen of the thoracic spine. ACT 112: Negative or not required by law. Electronically signed by: Ciro Niño M.D. 01/02/2025 3:53 PM
--- NOTE | 2025-01-02 15:58 | CT Scan Report ---
CT lumbar spine w con CLINICAL HISTORY: Trauma COMPARISON STUDY: X-ray of 07/08/2023. FINDINGS: There is moderate diffuse degenerative disc disease. There is osteopenia. No acute fracture or subluxation seen. Stable infrarenal abdominal aortic aneurysm measuring 3.6 cm greatest AP dimens ion. There are small areas of sclerosis inferiorly and laterally in the sacrum bilaterally adjacent t o the SI joints which could represent chronic mild sacroiliitis or old healed sacral insufficiency fr actures. IMPRESSION: No acute fracture seen of the lumbar spine. ACT 112: Negative or not required by law. Electronically signed by: Ciro Niño M.D. 01/02/2025 3:57 PM
[2025-01-02 16:10] LABS: INR 1.0 (0.9-1.1); Partial Thromboplastin Time 24 Seconds (21-31); Prothrombin Time 11.0 Seconds (9.0-12.0)
--- NOTE | 2025-01-02 16:10 | CT Scan Report ---
CHEST CT WITH CONTRAST; CT ABDOMEN AND PELVIS WITH IV CONTRAST ONLY CT DOSE: 3555.06 mGy.cm HISTORY: Acute chest and abdominal trauma with right-sided rib pain Trauma TECHNIQUE: Multiaxial CT images of the chest, abdomen and pelvis were performed following the IV admi nistration of 93 cc of Optiray. A dose lowering technique was utilized adhering to the principles o f ALARA. COMPARISON: CT thoracic spine of same day FINDINGS: CT CHEST: Unremarkable thyroid. No lymphadenopathy or mediastinal hematoma. Mild cardiomegaly with ex tensive coronary artery calcifications. Atherosclerosis of the aorta without aneurysm. No pulmonary e mbolus. No pneumothorax, pleural effusion, airspace consolidation or pulmonary edema. Mild dependent subsegmental bibasilar atelectasis. Left-sided pleural calcifications. Central airways are patent. Un remarkable soft tissues. Degenerative changes of the shoulders and spine. Acute nondisplaced fracture s of the posterior right seventh through tenth ribs. Probable healed chronic fracture of the anterior left third rib. No definite thoracic spine fracture identified. CT ABDOMEN/PELVIS: No pneumatosis or pneumoperitoneum. Unremarkable spleen, gallbladder, adrenal glan ds and liver. Patent portal vein. Scattered parenchymal calcifications of the pancreas compatible wit h chronic pancreatitis. A 7 x 4 x 13 mm calcification is noted in the pancreatic head on image [address] 13. There is an adjacent 1.5 cm water attenuation focus which may represent a sidebranch IPMN. A lternatively this may represent pancreatic ductal dilation. Prostamegaly. Unremarkable kidneys without hydronephrosis. Atherosclerosis aorta with fusiform infrar enal aneurysmal dilation measuring 4.0 x 3.6 cm. There is no lymphadenopathy. Colonic diverticulosis without acute diverticulitis. Mild colonic fecal retention. Normal appendix. No acute fracture identi fied. IMPRESSION: 1. Acute nondisplaced right posterior seventh through tenth rib fractures. No pneumothorax. 2. No acute posttraumatic intra-abdominal or intrapelvic abnormality. 3. Evidence of chronic pancreatitis with 13 mm calcification noted within the pancreatic head. 4. Infrarenal abdominal aortic aneurysm measures 4 cm. 5. Additional findings as above. ACT 112: Negative or not required by law. Electronically signed by: Goran Ramirez M.D. 01/02/2025 4:09 PM
[2025-01-02 16:18] LABS: Alanine Aminotransferase 20.0 U/L (7-52); Albumin Globulin Ratio 1.4 (0.9-2); Alkaline Phosphatase 61.0 U/L (34-104); Anion Gap 6.0 (3-11); Bilirubin,Total 1.0 mg/dl (0.2-1.0); Blood Urea Nitrogen 24.0 mg/dl (6-23); Calcium 9.4 mg/dl (8.6-10.3); Carbon Dioxide 25.0 mmol/L (21-32); Chloride 106.0 mmol/L (98-107); Creatinine Clr Calc Pharmacy 33.3 ml/min; Globulin 3.1 gm/dl (2.5-4.0); Glucose 122.0 mg/dl (70-99(Fasting)); Lipase 51.0 U/L (11-82); Potassium 4.5 mmol/L (3.5-5.1); Sodium 137.0 mmol/L (136-145); Total Protein 7.5 gm/dl (6.0-8.3)
[2025-01-02] MEDS: KETOROLAC TROMETHAMINE 15 MG/ML VIAL IV ONE (16:33)
[2025-01-02] MEDS: SODIUM CHLORIDE 0.9% 500 ML IV ONE (16:34)
[2025-01-02 17:03] LABS: Hematocrit (blood only) 39.0 % (42.0-52.0); Hemoglobin 13.2 g/dl (14.0-18.0); Mean Corpuscular Hemoglobin 32.0 pg (25.0-34.0); Mean Corpuscular Volume 94.7 fL (80.0-100.0); RDW Standard Deviation 48.9 fL (36.4-46.3); Red Blood Count 4.12 M/uL (4.70-6.10); White Blood Count 14.03 K/ul (4.8-10.8)
[2025-01-02 17:38] LABS: Platelet Count 213 K/uL (130-400)
[2025-01-02 17:39] LABS: Immature Granulocytes # (auto) 0.09 K/uL (0.01-0.20); Immature Granulocytes % (auto) 0.6 %
--- NOTE | 2025-01-02 18:57 | History & Physical Report ---
Date of Service January 02, 2025 Assessment & Plan (1) Ribs, multiple fractures: (2) Elevated troponin: (3) CAD (coronary artery disease): (4) Hypothyroidism: (5) Pancreatic abnormality: Plan #fall/rib fracturesfortunately he looks surprisingly well in spite of 4 contiguous rib fractures. They are not displaced there is no evidence of pneumothorax or hemothorax. Pain control with topical lidocaine patch, scheduled Tylenol, considered Toradol but he has a bit of an elevated creatininebecause of this we will use 2 mg morphine as needed moderate breakthrough pain and 4 mg as needed severe. Incentive spirometry every hour while awake. Depending on how he is doing consider PT/OT eval, but hopefully he will do well fairly quickly. #Elevated troponin/T wave inversionsfortunately fairly mildpeak troponin was 119 and already trending down to 113. He does not have any characteristic anginal symptoms and is actually quite active with no angina either. Follow overnight. Check an echocardiogram. I suspect given his known fairly diffuse coronary disease the physiologic stress of the following fractures may have just caused a mild episode of demand ischemia. #Pancreatic abnormalitynoted on CT. Outpatient follow-up #infrarenal abdominal aortic aneurysmonly 4 cm. Outpatient follow-up #DVT prophylaxisLovenox anticipate him being able to go home whenever his pain is under reasonable control and assuming his cardiac workup is bland. History of Present Illness Chief Complaint: fall off of a ladder Primary Care Provider: Kenrick Morrow MD patient is a very pleasant 89-year-old male accompanied by his family. He was trimming a spangler. Was up on about the fifth rung of a 6 foot stepladder, the ladder kicked out from under him and he fell onto his back. Fairly immediate rib pain, shortness of breath with a deep breaths more intermittently but definitely not constantly. No head trauma. No loss of consciousness. Acting like his normal self. Has been quite active lately with no anginal symptoms. Passed a stress test recently as well. Medications have been being adjustedshe has not had chest pain, but he has had a little bit of lightheadedness here and there. Allergies Allergy/AdvReac Type Severity Reaction Status Date / Time No Known Drug Allergies Allergy Verified 11/17/24 08:13 Home Medications Medication Instructions Recorded Confirmed Type aspirin 81 mg tablet,delayed 81 mg PO QAM 01/07/21 11/17/24 History release (Sujey Low Dose Aspirin) cholecalciferol (vitamin D3) 50 50 mcg PO DAILY 11/20/21 11/17/24 History mcg (2,000 unit) capsule atenolol 25 mg tablet 12.5 mg (1/2 x 25 mg) PO QAM #45 04/20/24 11/17/24 Rx tabs levothyroxine 50 mcg tablet 50 mcg PO QAM #90 tabs 04/20/24 11/17/24 Rx simvastatin 80 mg tablet 80 mg PO QPM #90 tabs 04/20/24 11/17/24 Rx isosorbide mononitrate 10 mg tablet 10 mg PO BID #180 tabs 08/08/24 11/17/24 Rx nitroglycerin 0.4 mg sublingual 0.4 mg sublingual Q5M PRN chest 10/11/24 11/17/24 Rx tablet pain #20 tabs ranolazine 500 mg tablet,extended 500 mg PO BID #180 tabs 12/13/24 Rx release,12 hr Past Med/Surg History Problem List (Updated 01/02/25 @ 18:54 by Augusto Garland DO) Pancreatic abnormality Elevated troponin Ribs, multiple fractures Exertional chest pain Right inguinal pain Back pain Screening for prostate cancer Vitamin D deficiency Heart disease (Chronic) Hypotension Pneumonia Gout Dermatochalasis of both eyelids HTN (hypertension) Type 2 diabetes mellitus Hyperlipidemia Hypothyroidism Encounter for pre-operative examination History of PTCA CAD (coronary artery disease) Actinic keratosis AAA (abdominal aortic aneurysm) BEING MONITORED YEARLY (DR. CEE) Medical History History of kidney stones NO SURGERY Borderline diabetes History of skin cancer Hypothyroidism Myocardial Infarction 1994 Hypertension Hyperlipidemia History of COVID-12 MARCH 2020 (NO SYMPTOMS) Hx of gout Surgical History History of cataract surgery left cataract History of colonoscopy History of tooth extraction Chalaz[place] of both eyes EXCISION History of cardiac cath NO STENTS (1994) Family History Father Coronary heart disease Myocardial infarction Mother No problems noted. Other Diabetes No family history of adverse response to anesthesia Denies family history of Colon cancer Ovarian cancer Prostate cancer Breast cancer Social History Smoking Status: Never smoker Tobacco Type: Cigars Age Started Using Tobacco: 22; Cigarettes Per Day: 2 CIGARS DAILY; Second Hand Exposure: No; Do You Dip or Chew Tobacco: Yes (advised npo); Hx Alcohol Use: Yes Alcohol type: beer Alcohol Intake Frequency Comment: social Hx Substance Use: No Preferred Language: Malian Communication Ability: Effective Visual Impairment: No Limitations Hearing Ability: Normal Time Clock Mechanic Required: No Beliefs That Will Affect Care: None marital status: / Current Living Situation: Alone current occupational status: retired Feels Safe at Home: Yes Childhood Exposure to Second-Hand Smoke: Yes Dental Care, Regularly: Yes Physical Activity Frequency: 3-4 Times per Week Physical Activity Frequency Comment: Very active Seatbelt Use: always Sunscreen Use: No Assistive Devices: Glasses Review of Systems Review of Systems: All systems reviewed & are unremarkable except as noted in HPI & below Physical Exam Physical Exam: In general he is awake and alert pleasant no distress. HEENT normocephalic atraumatic mucous membranes moist. Cardio is regular without rubs murmurs or gallops. Lungs are clear to auscultation bilaterally no rales rhonchi or wheeze s good effort. Abdomen is soft nondistended nontender no masses organomegaly. Extremities are without sinus clubbing or edema. Neuro shows cranial nerves II through XII be grossly intact gross motor and sensory intact. No gross deformities. Labs and diagnostics noted. Results & Data Results & Data Vital Signs (Past 12 Hours) Vital Signs Temp Pulse Pulse Resp BP BP Pulse Ox 01/02/25 18:00 60 16 132/75 94 01/02/25 17:56 56 L 16 135/80 96 01/02/25 17:00 58 L 16 129/68 97 01/02/25 16:02 97.9 F 63 18 126/74 95 01/02/25 15:24 60 01/02/25 15:06 98.1 F 62 18 150/79 H 95 01/02/25 15:02 98.1 F 66 18 150/79 H 97 01/02/25 15:02 98.1 F 61 18 150/79 H 98 O2 Del Method O2 Flow Rate 01/02/25 18:00 Room Air 01/02/25 17:56 01/02/25 17:00 Room Air 01/02/25 16:02 Room Air 01/02/25 15:24 01/02/25 15:06 Room Air 01/02/25 15:02 Room Air 01/02/25 15:02 Room Air 0 Code Status & VTE Plan VTE Prophylaxis Plan VTE Prophylaxis will be ordered: Yes PG Care Time/CCT Total # of Minutes Spent Total Time Spent with Patient: Total time spent is greater than 50% in coordination of care (as documented) at patient's floor/unit and/or counseling patient: Coding Level of Care Code 25813 INT INP/OBS CARE 75MIN Diagnoses Ribs, multiple fractures S22.49XA Elevated troponin R79.89 Coronary artery disease involving [place] coronary artery of [place] heart with angina pectoris I25.119 Coronary Disease-Associated Artery/Lesion type: [place] artery [place] vs. transplanted heart: [place] heart Associated angina: with unspecified form of angina Hypothyroidism E03.9 Pancreatic abnormality Q45.3 (3) CAD (coronary artery disease) Coronary Disease-Associated Artery/Lesion type: [place] artery [place] vs. transplanted heart: [place] heart Associated angina: with unspecified form of angina Qualified Code(s): I25.119 - Atherosclerotic heart disease of [place] coronary artery with unspecified angina pectoris
[2025-01-02] MEDS ORDERED: ALUMINUM/MAGNESIUM SUSP 30 ML UDC PO PRN (19:11)
[2025-01-02] MEDS ORDERED: NITROGLYCERIN SL 0.4 MG/TAB TAB SL PRN (19:11)
[2025-01-02] MEDS ORDERED: POLYETHYLENE (MIRALAX) 17 GM PACK PO PRN (19:11)
[2025-01-02] MEDS ORDERED: ONDANSETRON INJ 2 MG/ML 2 ML VIAL IV PRN (19:11)
[2025-01-02] MEDS ORDERED: MAGNESIUM HYDROXIDE SUSP 30 ML UDC PO PRN (19:11)
[2025-01-02] MEDS: LIDOCAINE 5% 1 PATCH TD STA (19:32)
[2025-01-02] MEDS: ENOXAPARIN INJ 40 MG/0.4 ML SYR SQ SCH (20:27)
[2025-01-02] MEDS: MoRPHine SULFATE 4 MG/ML 1 ML CARP\\VIAL IV PRN (20:43)
[2025-01-02] MEDS: SIMVASTATIN 80 MG TAB PO SCH (20:51)
[2025-01-02] MEDS: RANOLAZINE 500 MG ER TAB PO SCH (20:51)
[2025-01-02] MEDS: ISOSORBIDE MONONITRATE 20 MG TAB PO SCH (20:51)
[2025-01-02] MEDS: ACETAMINOPHEN 325 MG TAB PO SCH (20:52)
[2025-01-02] MEDS: REMOVE LIDODERM PATCH SCH (22:44)
[2025-01-03] MEDS: LEVOTHYROXINE SODIUM 50 MCG TABLET PO SCH (06:05)
[2025-01-03] MEDS: MoRPHine SULFATE 2 MG/ML CARP IV PRN (06:07)
[2025-01-03] MEDS: CHOLECALCIFEROL 25 MCG (1000 UNITS) TAB PO SCH (08:14)
[2025-01-03] MEDS: ATENOLOL 25 MG TABLET PO SCH (08:15)
[2025-01-03] MEDS: ASPIRIN 81 MG ECTAB PO SCH (08:15)
[2025-01-03] MEDS: LIDOCAINE 5% 1 PATCH TD SCH (08:15)
[2025-01-03 09:22] LABS: Anion Gap 5.0 (3-11); Blood Urea Nitrogen 22.0 mg/dl (6-23); Calcium 8.6 mg/dl (8.6-10.3); Carbon Dioxide 25.0 mmol/L (21-32); Chloride 107.0 mmol/L (98-107); Creatinine Clr Calc Pharmacy 39.1 ml/min; Glucose 84.0 mg/dl (70-99(Fasting)); Potassium 4.5 mmol/L (3.5-5.1); Sodium 137.0 mmol/L (136-145)
[2025-01-03 10:17] LABS: Hematocrit (blood only) 35.5 % (42.0-52.0); Hemoglobin 11.5 g/dl (14.0-18.0); Mean Corpuscular Hemoglobin 31.4 pg (25.0-34.0); Mean Corpuscular Volume 97.0 fL (80.0-100.0); Platelet Count 144 K/uL (130-400); RDW Standard Deviation 50.8 fL (36.4-46.3); Red Blood Count 3.66 M/uL (4.70-6.10); White Blood Count 8.53 K/ul (4.8-10.8)
[2025-01-03 10:56] LABS: Immature Granulocytes # (auto) 0.03 K/uL (0.01-0.20); Immature Granulocytes % (auto) 0.4 %
--- NOTE | 2025-01-03 11:33 | XCELERA ---
[id number]
[2025-01-03] MEDS: POLYETHYLENE (MIRALAX) 17 GM PACK PO SCH (12:43)
--- NOTE | 2025-01-03 13:11 | Electrocardiogram Report ---
Test Reason : Blood Pressure : */* mmHG Vent. Rate : 63 BPM Atrial Rate : 63 BPM P-R Int : 176 ms QRS Dur : 82 ms QT Int : 436 ms P-R-T Axes : * -12 27 degrees QTcB Int : 446 ms Normal sinus rhythm Nonspecific ST and T wave abnormality Abnormal ECG When compared with ECG of 07-Jan-2021 09:53, ST now depressed in Anterior leads Nonspecific T wave abnormality, worse in Inferior leads T wave inversion now evident in Anterior leads QT has lengthened Confirmed by Kenrick Live ([id number]) on 01/03/2025 1:11:42 PM Referred By: REFERRED SELF Confirmed By: Kenrick Live
--- NOTE | 2025-01-03 13:14 | Electrocardiogram Report ---
Test Reason : Blood Pressure : */* mmHG Vent. Rate : 59 BPM Atrial Rate : 59 BPM P-R Int : 176 ms QRS Dur : 80 ms QT Int : 434 ms P-R-T Axes : 5 -20 -35 degrees QTcB Int : 429 ms Sinus bradycardia Low voltage QRS Anterior ST abnormality Abnormal ECG When compared with ECG of 02-Jan-2025 15:37, (unconfirmed) Nonspecific T wave abnormality no longer evident in Lateral leads Confirmed by Kenrick Live ([id number]) on 01/03/2025 1:13:39 PM Referred By: REFERRED SELF Confirmed By: Kenrick Live
--- NOTE | 2025-01-03 15:58 | Hospitalist Progress Note ---
Date of Service January 03, 2025 Assessment & Plan (1) Ribs, multiple fractures: (2) Elevated troponin: (3) CAD (coronary artery disease): (4) Hypothyroidism: (5) Pancreatic abnormality: Plan Александр is a 89M with a PMHx of CAD, HTN, HLD, DMT2 (diet controlled) and hypothyroid who presents after mechanical fall off a ladder resulting in rib fractures. #fall/rib fractures 4 contiguous rib fractures. They are not displaced there is no evidence of pneumothorax or hemothorax. Pain control:topical lidocaine patch, scheduled Tylenol, prn IV morphine Incentive spirometry every hour while awake. poor mobilization - PT/OT ordered Bowel regimen ordered while on narcotics #Elevated troponin/T wave inversions/CAD/HTNfortunately fairly mildpeak troponin was 119 and already trending down to 113. No CP. Suspect demand from fall and known CAD. Echo: mild LVH, no regional wall motion abnormalities, EF 55-60% Continue isosorbide, atenolol, ASA, Ranexa, simvastatin #Pancreatic abnormalitynoted on CT. Outpatient follow-up #infrarenal abdominal aortic aneurysmonly 4 cm. Outpatient follow-up #Hypothyroidism-recent TSH 3.6 in 10/2024 -continue home levothyroxine DVT prophylaxisLovenox Dispo: continued inpatient stay for pain control Admission and Anticipated Discharge Date Admission Date: January 02, 2025 Supervising Physician Co-Signing Physician Notes ESTRELLA Supervision Note: I did not personally see or examine the patient today, but I verified all [place] points of ESTRELLA Lomeli's assessment and plan with the following exceptions/additions: None Subjective Patient seen lying in bed, had recieved Morphine just prior to me seeing him and good relief from this. Prior was having difficulty getting comfortable, and did not sleep well. Appetite is okay has been a few days since his last bowel movement telemetry sinus bradycardia 50s to 60s Review of Systems Review of Systems: All systems reviewed & are unremarkable except as noted in Subjective Physical Exam Physical Exam: General: NAD, VS as above, lyinng in bed, uncomfortable with movement Resp: normal respiratory effort, lungs clear to auscultation - painful with deep breaths CV: RRR, no murmur, Abd: normal bowel sounds, non tender, no hepatosplenomegaly Extremities: Moves all extremities, no edema Neuro: A&O x3, Results & Data Results & Data Vital Signs (Past 12 Hours) Vital Signs Temp Pulse Pulse Resp BP Pulse Ox O2 Del Method 01/03/25 11:54 97.7 F 53 L 16 104/62 95 Room Air 01/03/25 08:42 52 L 01/03/25 07:40 98.1 F 53 L 18 115/71 96 Room Air Laboratory Results cbc and chemistry reviewed troponin reviewed PG Care Time/CCT Total # of Minutes Spent Total Time Spent with Patient: Total time spent is greater than 50% in coordination of care (as documented) at patient's floor/unit and/or counseling patient: Coding Level of Care Code 17979 SUB INP/OBS CARE 3/50MIN Diagnoses Ribs, multiple fractures S22.49XA Elevated troponin R79.89 Coronary artery disease involving [place] coronary artery of [place] heart with angina pectoris I25.119 Associated angina: with unspecified form of angina Coronary Disease-Associated Artery/Lesion type: [place] artery [place] vs. transplanted heart: [place] heart Hypothyroidism E03.9 Pancreatic abnormality Q45.3 (3) CAD (coronary artery disease) Associated angina: with unspecified form of angina Coronary Disease- Associated Artery/Lesion type: [place] artery [place] vs. transplanted heart: [place] heart Qualified Code(s): I25.119 - Atherosclerotic heart disease of [place] coronary artery with unspecified angina pectoris
[2025-01-03] MEDS: MELATONIN 3 MG TAB PO PRN (20:19)
--- NOTE | 2025-01-04 16:48 | Hospitalist Progress Note ---
Date of Service January 04, 2025 Assessment & Plan (1) Ribs, multiple fractures: (2) Elevated troponin: (3) CAD (coronary artery disease): (4) Hypothyroidism: (5) Pancreatic abnormality: Plan Александр is a 89M with a PMHx of CAD, HTN, HLD, DMT2 (diet controlled) and hypothyroid who presents after mechanical fall off a ladder resulting in rib fractures. #fall/rib fractures 4 contiguous rib fractures. They are not displaced there is no evidence of pneumothorax or hemothorax. Pain control:topical lidocaine patch, scheduled Tylenol. toradol first line for breakthrough, low dose morphine second line Incentive spirometry every hour while awake. poor mobilization - PT/OT - consider rehab Bowel regimen ordered while on narcotics nursing reported mild confusion with morphine, worse today with oxycodone and then ripped out IV this afternoon. will start toradol. Check UA #Elevated troponin/T wave inversions/CAD/HTNfortunately fairly mildpeak troponin was 119 and already trending down to 113. No CP. Suspect demand from fall and known CAD. Echo: mild LVH, no regional wall motion abnormalities, EF 55-60% Continue isosorbide, atenolol, ASA, Ranexa, simvastatin #Pancreatic abnormalitynoted on CT. Outpatient follow-up #infrarenal abdominal aortic aneurysmonly 4 cm. Outpatient follow-up #Hypothyroidism-recent TSH 3.6 in 10/2024 -continue home levothyroxine DVT prophylaxisLovenox Dispo: continued inpatient stay for pain control, stable for downgrade to medical family updated at bedside 01/04 Admission and Anticipated Discharge Date Admission Date: January 02, 2025 Supervising Physician Co-Signing Physician Notes PA Supervision Note: I did not personally see or examine the patient today, but I verified all gaona points of ESTRELLA Lomeli's assessment and plan with the following exceptions/additions: None Subjective patient seen sitting up in the chair - appears better today daughter present at bedside reports pain with movement, was just working with therapy and walked in the halls daughter noting some confusion since oxycodone administration Tele 60-70s Review of Systems Review of Systems: All systems reviewed & are unremarkable except as noted in Subjective Physical Exam Physical Exam: General: NAD, VS as above, lyinng in bed, uncomfortable with movement Resp: normal respiratory effort, lungs clear to auscultation - painful with deep breaths - symmetric expansion, no signs of flail chest CV: RRR, no murmur, Abd: normal bowel sounds, non tender, no hepatosplenomegaly Extremities: Moves all extremities, no edema Neuro: A&O x3, Results & Data Results & Data Vital Signs (Past 12 Hours) Vital Signs Temp Pulse Pulse Resp BP BP Pulse Ox 01/04/25 16:01 01/04/25 15:53 98.1 F 72 18 133/73 91 01/04/25 15:02 68 01/04/25 07:48 98.4 F 73 16 130/75 92 01/04/25 07:30 78 01/04/25 07:30 O2 Del Method O2 Flow Rate 01/04/25 16:01 Nasal Cannula 01/04/25 15:53 Nasal Cannula 01/04/25 15:02 01/04/25 07:48 Nasal Cannula 2 01/04/25 07:30 01/04/25 07:30 Room Air PG Care Time/CCT Total # of Minutes Spent Total Time Spent with Patient: Total time spent is greater than 50% in coordination of care (as documented) at patient's floor/unit and/or counseling patient: Coding Level of Care Code 65080 SUB INP/OBS CARE 2/35MIN Diagnoses Ribs, multiple fractures S22.49XA Elevated troponin R79.89 Coronary artery disease involving [place] coronary artery of [place] heart with angina pectoris I25.119 Associated angina: with unspecified form of angina Coronary Disease-Associated Artery/Lesion type: [place] artery [place] vs. transplanted heart: [place] heart Hypothyroidism E03.9 Pancreatic abnormality Q45.3 (3) CAD (coronary artery disease) Associated angina: with unspecified form of angina Coronary Disease- Associated Artery/Lesion type: [place] artery [place] vs. transplanted heart: [place] heart Qualified Code(s): I25.119 - Atherosclerotic heart disease of [place] coronary artery with unspecified angina pectoris
[2025-01-05] MEDS: KETOROLAC TROMETHAMINE 15 MG/ML VIAL IV PRN (02:56)
[2025-01-05 03:15] LABS: Appearance Urine Clear (Clear); Bacteria Urine Automated None Seen (None Seen); Epithelial Cell Urine Auto 0-2 /hpf (0-2); Glucose Urine UA Negative (Negative); RBC Urine Automated 0-2 /hpf (0-2); WBC Urine Automated 0-5 /hpf (0-5)
[2025-01-05 09:55] LABS: Anion Gap 7.0 (3-11); Calcium 8.7 mg/dl (8.6-10.3); Carbon Dioxide 25.0 mmol/L (21-32); Chloride 103.0 mmol/L (98-107); Potassium 4.6 mmol/L (3.5-5.1); Sodium 135.0 mmol/L (136-145)
[2025-01-05 10:00] LABS: Blood Urea Nitrogen 19.0 mg/dl (6-23); Creatinine Clr Calc Pharmacy 44.6 ml/min; Glucose 116.0 mg/dl (70-99(Fasting))
[2025-01-05 10:30] LABS: Hematocrit (blood only) 33.5 % (42.0-52.0); Hemoglobin 11.3 g/dl (14.0-18.0); Mean Corpuscular Hemoglobin 31.8 pg (25.0-34.0); Mean Corpuscular Volume 94.4 fL (80.0-100.0); Platelet Count 132 K/uL (130-400); RDW Standard Deviation 47.2 fL (36.4-46.3); Red Blood Count 3.55 M/uL (4.70-6.10); White Blood Count 11.20 K/ul (4.8-10.8)
--- NOTE | 2025-01-05 11:19 | Hospitalist Progress Note ---
Date of Service January 05, 2025 Assessment & Plan (1) Ribs, multiple fractures: (2) Elevated troponin: (3) CAD (coronary artery disease): (4) Hypothyroidism: (5) Pancreatic abnormality: Prasanth Fountain is a 89M with a PMHx of CAD, HTN, HLD, DMT2 (diet controlled) and hypothyroid who presents after mechanical fall off a ladder resulting in rib fractures. #fall/rib fractures 4 contiguous rib fractures. They are not displaced there is no evidence of pneumothorax or hemothorax. Pain control:topical lidocaine patch, scheduled Tylenol. prn tramadol - did not tolerate morphine/oxycodone well, consider anesthesia consult if pain not controlled with tramadol Incentive spirometry every hour while awake. poor mobilization - PT/OT - consider rehab Bowel regimen ordered while on narcotics UA checked with confusion, no evidence of UTI. Slight leukocytosis today at 11, suspect atelectasis. Encourage IS and FV, repeat CBC tomorrow and pending results consider CXR. Afebrile, no infectious complaints. #Elevated troponin/T wave inversions/CAD/HTNfortunately fairly mildpeak troponin was 119 and already trending down to 113. No CP. Suspect demand from fall and known CAD. Echo: mild LVH, no regional wall motion abnormalities, EF 55-60% Continue isosorbide, atenolol, ASA, Ranexa, simvastatin #Pancreatic abnormalitynoted on CT. Outpatient follow-up #infrarenal abdominal aortic aneurysmonly 4 cm. Outpatient follow-up #Hypothyroidism-recent TSH 3.6 in 10/2024 -continue home levothyroxine DVT prophylaxisLovenox Dispo: continued inpatient stay for pain control, stable for downgrade to medical family updated at bedside 01/04 Admission and Anticipated Discharge Date Admission Date: January 02, 2025 Supervising Physician Co-Signing Physician Notes PA Supervision Note: I did not personally see or examine the patient today, but I verified all ga[place] points of ESTRELLA Lomeli's assessment and plan with the following exceptions/additions: None Subjective Seen lying in bed, more painful today does not recall pulling out his IV or acting weird last night has not been out of bed, RN reported that he was unwilling for breakfast but he told me he would be happy to get out of bed patient thinks he is going home today, I told him his functional status is not ready for that SR/SB 50-60s Review of Systems Review of Systems: All systems reviewed & are unremarkable except as noted in Subjective Physical Exam Physical Exam: General: NAD, VS as above, lyinng in bed, uncomfortable with movement Resp: normal respiratory effort, lungs clear to auscultation - painful with deep breaths - symmetric expansion, no signs of flail chest. 750 on IS CV: RRR, no murmur, Abd: normal bowel sounds, non tender, no hepatosplenomegaly Extremities: Moves all extremities, no edema Neuro: A&O x3, Results & Data Results & Data Vital Signs (Past 12 Hours) Vital Signs Temp Pulse Pulse Resp BP Pulse Ox O2 Del Method 01/05/25 07:59 97.9 F 61 18 130/77 93 Nasal Cannula 01/05/25 07:30 Nasal Cannula 01/05/25 07:00 65 01/05/25 03:39 98.1 F 61 18 116/69 95 Nasal Cannula O2 Flow Rate 01/05/25 07:59 2 01/05/25 07:30 2 01/05/25 07:00 01/05/25 03:39 2 Laboratory Results cbc, chemistry and UA reviewed PG Care Time/CCT Total # of Minutes Spent Total Time Spent with Patient: Total time spent is greater than 50% in coordination of care (as documented) at patient's floor/unit and/or counseling patient: Coding Level of Care Code 92901 SUB INP/OBS CARE 2/35MIN Diagnoses Ribs, multiple fractures S22.49XA Elevated troponin R79.89 Coronary artery disease involving [place] coronary artery of [place] heart with angina pectoris I25.119 Associated angina: with unspecified form of angina Coronary Disease-Associated Artery/Lesion type: [place] artery [place] vs. transplanted heart: [place] heart Hypothyroidism E03.9 Pancreatic abnormality Q45.3 (3) CAD (coronary artery disease) Associated angina: with unspecified form of angina Coronary Disease- Associated Artery/Lesion type: [place] artery [place] vs. transplanted heart: [place] heart Qualified Code(s): I25.119 - Atherosclerotic heart disease of [place] coronary artery with unspecified angina pectoris
[2025-01-06 09:41] LABS: Hematocrit (blood only) 35.7 % (42.0-52.0); Hemoglobin 12.0 g/dl (14.0-18.0); Mean Corpuscular Hemoglobin 31.4 pg (25.0-34.0); Mean Corpuscular Volume 93.5 fL (80.0-100.0); Platelet Count 138 K/uL (130-400); RDW Standard Deviation 45.9 fL (36.4-46.3); Red Blood Count 3.82 M/uL (4.70-6.10); White Blood Count 9.84 K/ul (4.8-10.8)
--- NOTE | 2025-01-06 13:40 | Hospitalist Progress Note ---
Date of Service January 06, 2025 Assessment & Plan (1) Ribs, multiple fractures: (2) Elevated troponin: (3) CAD (coronary artery disease): (4) Hypothyroidism: (5) Pancreatic abnormality: Prasanth Fountain is a 89M with a PMHx of CAD, HTN, HLD, DMT2 (diet controlled) and hypothyroid who presents after mechanical fall off a ladder resulting in rib fractures. #fall/rib fractures 4 contiguous rib fractures. They are not displaced there is no evidence of pneumothorax or hemothorax. Pain control:topical lidocaine patch, scheduled Tylenol. prn tramadol - did not tolerate morphine/oxycodone well, consider anesthesia consult if pain not controlled with tramadol Incentive spirometry every hour while awake, continue FV poor mobilization - PT/OT - consider rehab, auth pending for [facility] Bowel regimen ordered while on narcotics slight leukocytosis has resolved - suspected from atelectasis. Pain improved on tramadol, O2 needs have decreased at rest. Spoke with granddaughter, 01/06 requesting anesthesia consult - placed. #Elevated troponin/T wave inversions/CAD/HTNfortunately fairly mildpeak troponin was 119 and already trending down to 113. No CP. Suspect demand from fall and known CAD. Echo: mild LVH, no regional wall motion abnormalities, EF 55-60% Continue isosorbide, atenolol, ASA, Ranexa, simvastatin #Pancreatic abnormalitynoted on CT. Outpatient follow-up #infrarenal abdominal aortic aneurysmonly 4 cm. Outpatient follow-up #Hypothyroidism-recent TSH 3.6 in 10/2024 -continue home levothyroxine DVT prophylaxisLovenox Dispo: continued inpatient stay for pain control, anesthesia consult family updated at bedside 01/04 & by phone 01/06 Admission and Anticipated Discharge Date Admission Date: January 02, 2025 Subjective Patient seen sitting up in the chair, reports pain controlled at rest but worse with movement needs alot of encouragement to complete IS at full potential I disucssed with him his constipation - he reports that he feels like he has to go but was agreeable that if he did not have a bowel movement after lunch he is agreeable to PRN Review of Systems Review of Systems: All systems reviewed & are unremarkable except as noted in Subjective Physical Exam Physical Exam: General: NAD, VS as above, sitting up in the chair, appears much better Resp: normal respiratory effort, lungs clear to auscultation - symmetric expansion, no signs of flail chest. 1000 on IS, pain appears better CV: RRR, no murmur, Abd: normal bowel sounds, firm , no hepatosplenomegaly Extremities: Moves all extremities, no edema Neuro: A&O x3, Results & Data Results & Data Vital Signs (Past 12 Hours) Vital Signs Temp Pulse Resp BP Pulse Ox O2 Del Method O2 Flow Rate 01/06/25 08:47 69 91 Room Air 01/06/25 08:30 Nasal Cannula 2 01/06/25 07:48 97.9 F 66 18 125/78 93 Room Air Laboratory Results cbc reviewed PG Care Time/CCT Total # of Minutes Spent Total Time Spent with Patient: Total time spent is greater than 50% in coordination of care (as documented) at patient's floor/unit and/or counseling patient: Coding Level of Care Code 87894 SUB INP/OBS CARE 2/35MIN Diagnoses Ribs, multiple fractures S22.49XA Elevated troponin R79.89 Coronary artery disease involving [place] coronary artery of [place] heart with angina pectoris I25.119 Associated angina: with unspecified form of angina Coronary Disease-Associated Artery/Lesion type: [place] artery [place] vs. transplanted heart: [place] heart Hypothyroidism E03.9 Pancreatic abnormality Q45.3 (3) CAD (coronary artery disease) Associated angina: with unspecified form of angina Coronary Disease- Associated Artery/Lesion type: [place] artery [place] vs. transplanted heart: [place] heart Qualified Code(s): I25.119 - Atherosclerotic heart disease of [place] coronary artery with unspecified angina pectoris
--- NOTE | 2025-01-06 16:53 | Communication Note ---
Date of Service: January 06, 2025 Received [place] Message from Anesthesia that nerve blocks for rib fractures are not something they are able to offer in the hospital. Recommend pain management consult. If patient is still inpatient and not improving on Thursday this can be considered.
[2025-01-07 08:00] VITALS: TEMP 97.9
--- NOTE | 2025-01-07 11:04 | Discharge Summary ---
Discharge Summary Date of Service January 07, 2025 Principal Dx & Hospital Course #1 = Principal Diagnosis (1) Ribs, multiple fractures: (2) Elevated troponin: (3) CAD (coronary artery disease): (4) Hypothyroidism: (5) Pancreatic abnormality: Prasanth Fountain is a 89M with a PMHx of CAD, HTN, HLD, DMT2 (diet controlled) and hypothyroid who presents after mechanical fall off a ladder resulting in rib fractures. 01/07: pt worked with physical therapy today. Per PT, pt did not have much pain. Pain occurs with cough or with activities that involve significant chest wall movement. He was on 2L oxygen. Pt had 2-step done and was saturating 91% on RA while ambulating. Discussed with patient the importance of using ICS to keep lungs open and reduce risk of pneumonia. #fall/rib fractures 4 contiguous rib fractures. They are not displaced there is no evidence of pneumothorax or hemothorax. - Pain control:topical lidocaine patch, scheduled Tylenol. prn tramadol - did not tolerate morphine/oxycodone well. - Incentive spirometry every hour while awake, continue FV - PT recs home with home health on re-eval (previously recommended [facility] for rehab) - Bowel regimen ordered while on narcotics - slight leukocytosis has resolved - suspected from atelectasis. #Elevated troponin/T wave inversions/CAD/HTNfortunately fairly mildpeak troponin was 119 and already trending down to 113. No CP. Suspect demand from fall and known CAD. Echo: mild LVH, no regional wall motion abnormalities, EF 55-60% Continue isosorbide, atenolol, ASA, Ranexa, simvastatin #Pancreatic abnormalitynoted on CT. Outpatient follow-up #infrarenal abdominal aortic aneurysmonly 4 cm. Outpatient follow-up #Hypothyroidism - recent TSH 3.6 in 10/2024 - continue home levothyroxine #Dispo: d/c home with home health Updated pt's granddaughter Dr. Jazmín Perdomo Admission HPI Per Admitting Provider patient is a very pleasant 89-year-old male accompanied by his family. He was trimming a spangler. Was up on about the fifth rung of a 6 foot stepladder, the ladder kicked out from under him and he fell onto his back. Fairly immediate rib pain, shortness of breath with a deep breaths more intermittently but definitely not constantly. No head trauma. No loss of consciousness. Acting like his normal self. Has been quite active lately with no anginal symptoms. Passed a stress test recently as well. Medications have been being adjustedshe has not had chest pain, but he has had a little bit of lightheadedness here and there. Discharge Exam Gen: no acute distress, sitting in chair comfortable, speaking in full sentences HEENT: NC/AT, MMM Lungs: nonlabored breathing though mild resistance to deep inspirations, CTAB CVS: [id number], RRR Abd: nl bowel sounds, soft, NT / ND : no byrd Ext: no edema Neuro: AAOx3 Psych: calm cooperative Discharge Plan Discharge Items Patient Disposition: Home - Home Health Services Reason For Visit: RIB FRACTURES, ELEVATED TROPONIN Discharge Diagnosis: Rib fractures Condition on Discharge: Serious Activity: Resume your previous activity Activity Comment: Refrain from continuing with high risk activities such as climbing ladders. Non-emergency contact: Primary Care Provider Call non-emergency contact if: you have any medication questions, your symptoms worsen, your pain is not controlled, your pain is worsening, your pain is unusual for you and your pain is concerning for you Follow-up/Referrals: Pro,Kenrick House MD [Primary Care Provider] - Christiano Medina MD, FIPP [Physician] - (rib fractures, eval for nerve block if pain worsens) Diet: Regular Addtl Attending Provider Instructions: 1. Refrain from high risk activities such as climbing ladders. Hold off on riding heavy machinery until rib fractures heal 2. You are noted to have pancreatic abnormality. Please follow up with your primary physician for further work up. 3. You have an abdominal aortic aneurysm. This needs follow up and close monitoring, especially given your smoking history. This will also need to be discussed with your primary care doctor. Pending Studies at Discharge: No Stand-Alone Forms: My [employer], Smoking Cessation Medications and DC Order Prescriptions: New acetaminophen 325 mg Tablet 650 mg PO QID 30 Days Qty: 240 0RF tramadol 50 mg Tablet 50 mg PO Q4H PRN (Reason: rib fractu) 30 Days Qty: 120 0RF lidocaine 5 % Adhesive Patch,Medicated 1 patch transdermal QAM Qty: 30 0RF Remove Lidoderm Patch 1 ea Not Applicable DAILY@2100 30 Days Qty: 30 5RF senna 8.6 mg capsule 8.6 mg PO DAILY 30 Days Qty: 30 0RF Continued isosorbide mononitrate 10 mg tablet 10 mg PO BID Qty: 180 3RF Rx Instructions: give doses 7 hrs apart nitroglycerin 0.4 mg tablet, sublingual 0.4 mg SL Q5M PRN (Reason: chest pain) Qty: 20 3RF ranolazine 500 mg tablet extended release 12 hr 500 mg PO BID Qty: 180 3RF cholecalciferol (vitamin D3) 50 mcg (2,000 unit) capsule 50 mcg PO DAILY simvastatin 80 mg tablet 80 mg PO QPM Qty: 90 3RF levothyroxine 50 mcg tablet 50 mcg PO QAM Qty: 90 3RF atenolol 25 mg tablet 12.5 mg PO QAM Qty: 45 3RF aspirin [Sujey Low Dose Aspirin] 81 mg Tablet,Delayed Release (Dr/Ec) 81 mg PO QAM Patient Comments: takes qam Discharge Orders: Discharge Order (Routine); Ordered 01/07/25 Ordered By: Michelle Zimmer Admission Data Admit Date/Time: 01/02/25 18:50 Attending Provider: Michelle Zimmer Admit Provider: Augusto Garland Primary Care Provider: Kenrick Morrow Other Providers: Augusto Garland; [facility] Stay Data Consultations 01/02/25 18:25 ED Decision to Admit Stat Diagnostic Imagining Performed 01/02/25 15:10 CT abd pelvis IV con only Stat CT cervical spine wo con Stat CT chest diagnostic w con Stat CT head/brain wo con Stat CT lumbar spine w con Stat CT thoracic spine w con Stat Discharge Instructions Given to Patient (Per Discharging Provider) 1. Refrain from high risk activities such as climbing ladders. Hold off on ridin g heavy machinery until rib fractures heal 2. You are noted to have pancreatic abnormality. Please follow up with your primary physician for further work up. 3. You have an abdominal aortic aneurysm. This needs follow up and close monitoring, especially given your smoking history. This will also need to be discussed with your primary care doctor. Total Time Total Time Spent Total Time Spent (In Minutes): 90 Coding Level of Care Code 74195 INP/OBS DISCH >30 MIN Diagnoses Ribs, multiple fractures S22.49XA Elevated troponin R79.89 Coronary artery disease involving [place] coronary artery of [place] heart with angina pectoris I25.119 Coronary Disease-Associated Artery/Lesion type: [place] artery [place] vs. transplanted heart: [place] heart Associated angina: with unspecified form of angina Hypothyroidism E03.9 Pancreatic abnormality Q45.3
[2025-01-07 11:30] VITALS: BP 107/63; PULSE 52; RESP 16; O2SAT 98
== END 2025-01-07 12:00 | disposition home health service (06) | DRG 184 ==
LOC: ED 14:57 → EDINP 18:50 → SUATTDRO 18:50 → 2N 19:11 → 3N 01-05 14:41

== ENCOUNTER 2025-05-21 09:12 | Inpatient (IN) ==
--- NOTE | 2025-05-21 09:25 | Emergency Department Note ---
Impression & Plan NSTEMI (non-ST elevated myocardial infarction), Bilateral lower lobe pneumonia, CHF (congestive heart failure), Hypomagnesemia ED Provider Note CHIEF COMPLAINT: Chest pain, shortness of breath HISTORY OF PRESENTING ILLNESS: This 89-year-old male patient presents to the emergency department with his for evaluation of chest pain and shortness of breath. The patient states that he has had a pressure in the center of his chest radiating out to the outside of his chest for the past week. The pain has been constantly there, but intermittent episodes of more significant symptoms. He has also been coughing and having shortness of breath for the past week. Sometimes notices some small specks of blood in his sputum. No fevers. The patient does have a history of an MD with stent placement in the past. He also has a history of for continuous rib fractures that he sustained after a fall in December 2024. The patient is currently on aspirin, but no other blood thinners. He did take nitroglycerin with some improvement of his symptoms at home, but not resolution of his symptoms. His last dose of nitroglycerin was at 3 AM[address] He last saw Dr. Live of cardiology on 05/03/2025 and was deemed stable from a cardiovascular standpoint per the note. The patient does have a history of exertional chest pain that is usually relieved with nitroglycerin. He does have a history of AAA as well that appears stable per the note. The patient's last echo from December 2024 showed normal left ventricular systolic function with ejection fracture of 55 to 60%. Mild LVH along with mild mitral digitation. No significant change from October 2024. Denies hematochezia, melena, hematuria, or hematemesis. He only admits to the small specks of blood in his sputum intermittently. REVIEW OF SYSTEMS: See HPI for pertinent positives and pertinent negatives. ALLERGIES: NKDA MEDICATIONS: See below PAST MEDICAL HISTORY: See below PHYSICAL EXAM: VITALS: Vitals are noted on the nurse's note and reviewed by myself. GENERAL: Non toxic, in no acute distress, non-diaphoretic. SKIN: Capillary refill <2 sec. EYES: PERRLA. EOMI. Conjunctivae without injection, sclerae without icterus. NOSE: Patent without discharge. MOUTH: Mucous membranes moist. Uvula midline. Airway patent. NECK: Supple without nuchal rigidity. HEART: Regular rate and rhythm without murmurs gallops or rubs. LUNGS: The patient has some decreased breath sounds on the right side with intermittent wheezes and possible Rales. No tracheal deviation. No retractions or accessory muscle use. ABDOMEN: Positive bowel sounds x 4. Normal tympanic percussion. Soft, nontender to palpation. No masses or hepatosplenomegaly. Mims sign negative. No CVA tenderness. No guarding, rigidity, or rebound tenderness. No focal RLQ or LLQ tenderness. MUSCULOSKELETAL: No gross musculoskeletal defects. No significant peripheral edema. Peripheral pulses 2+. NEURO: Patient was alert and oriented. No focal neurological deficits. DIFFERENTIAL DIAGNOSIS: Differential diagnosis includes angina, MD, pericarditis, myocarditis, aortic dissection, pleurisy, pneumothorax, PE, pneumonia, pneumomediastinum, esophagitis, esophageal spasm, GERD, perforated esophagus, perforated duodenal/gastric ulcer, pancreatitis, cholecystitis, costochondritis, musculoskeletal, bronchitis, URI, or others. ED COURSE AND MEDICAL DECISION MAKING: MEDICATIONS GIVEN: 250 mL normal saline solution bolus. Aspirin 324 mg p.o. chewed. DuoNeb treatment. Lasix 20 mg IV. Rocephin 2 g IV and Zithromax 500 mg p.o. Magnesium 1 g IV. Heparin weight-based bolus and drip. MONITOR: Continuous clinical application specialist: Order was placed for continuous clinical application specialist. Patient was placed on the clinical application specialist and continuous pulse ox. Patient was noted to be in normal sinus rhythm at an initial rate of 80 bpm per my interpretation. EKG: EKG was interpreted by myself and Dr. Rolon as normal sinus rhythm at [address] depressions in V2 and V3 that appear similar to his previous EKG on 01/02/2025 with no obvious evidence for STEMI. INTERPRETATION OF LABS: I interpreted the labs with full lab results as below in the lab section of this note. Laboratory results pertinent to the emergent complaint are discussed in the MDM section below. The patient was advised to follow up with their PCP and/or specialist(s) for further outpatient monitoring and management of any abnormal results. INTERPRETATION OF IMAGING: Imaging studies were interpreted by myself and read by radiology as per the imaging section of this note. The patient was advised to follow up with their PCP and/or specialist(s) for further outpatient management of any non-emergent abnormal findings. EXTERNAL RECORDS REVIEWED: I reviewed the patient's most recent cardiology office visit from 05/03/2025 as summarized above. Also reviewed the patient's most recent admission in December 2024 after his rib fractures. CHRONIC MEDICAL/SOCIAL CONDITIONS AFFECTING CARE: History of MD with stent placement as well as AAA. CONSULTATIONS: Dr. Elizalde of cardiology, on-call hospitalist CRITICAL CARE: I have personally spent 60 minutes of critical care time in the direct management of this patient. This includes bedside care, interpretation of diagnostic studies, and testing, discussion with consultants, patient, and family members, and other required patient management activities. This 60 minutes is in excess of all separately billable procedures. MDM SUMMARY: I examined the patient. The patient has had chest pressure for the past week that starts in the middle of his chest and radiates out. He has also been having a cough and shortness of breath, but no fevers. The patient states that he has intermittently had some specks of blood in his sputum when he coughs. He denies any fevers. The patient does have a history of exertional chest pain that is usually relieved with nitroglycerin. He did take his nitroglycerin with improvement of his symptoms, but not resolution. His last dose of nitroglycerin was at 3 AM. On exam, the patient does have some decreased breath sounds on the right side with possible rales as well as wheezing. The patient is hypotensive at 98/63 so the patient was not given nitroglycerin. The patient was given aspirin 324 mg p.o. chewed. An IV lock was placed and labs were drawn. The patient was initially hydrated with normal saline solution 250 mL bolus. Additional IV fluids were held due to CHF on chest x-ray as well as elevated BNP and concern for fluid overload. The patient was given a DuoNeb treatment with some improvement of his breathing as well as his wheezing, but he persisted with rales. Chest x-ray showed mild CHF as well as increased atelectasis versus early pneumonia in the lung bases. The patient does not appear to have a history of CHF and is not on diuretics. The patient's BNP is elevated at 835. I had a meaningful discussion about this patient with Dr. Rolon who agrees with my assessment and the treatment plan. The patient was given Lasix 20 mg IV. The patient's white blood cell count was elevated at 18.61. Lactate and procalcitonin were normal. After blood cultures were drawn, the patient was given Rocephin 2 g IV as well as Zithromax 500 mg p.o. Sputum culture was ordered and still pending. The patient's hemoglobin is low, but stable at 12.2. Platelet count normal at 188. Coags were normal. Glucose 135, sodium 134, and total bilirubin 1.7. CMP otherwise without concerning abnormalities. Magnesium low at 1.6 and he was given magnesium 1 g IV. Lipase was normal. COVID, RSV, and influenza were negative. The patient's high-sensitivity troponin was significantly elevated at 0. The patient had no change in his chest pain while in the emergency department and he has been having symptoms for the past week without evidence for STEMI on his initial EKG. The patient is likely having an NSTEMI along with CHF and pneumonia. After discussion with Dr. Rolon, a heparin bolus and drip was ordered. However, this was placed on hold after talking to cardiology. I spoke with Dr. Elizalde of cardiology. She recommended holding off on the heparin until after a CTA has been obtained due to the specks of blood in his sputum and his presentation. She also recommended obtaining an echo for further evaluation. The order for the heparin bolus and drip were canceled prior to nursing staff starting them. An order for the echo and CTA were placed. The patient has had no change in his chest pain in the past week or since arrival in the ER. Therefore, repeat EKG was not obtained. There was a delay in the On-call hospitalist contacting me after the [place] for admission was sent out. The patient had already gone down for the CTA of the chest as recommended by cardiology. When I spoke with the on-call hospitalist, they were concerned for possible aortic dissection due to his history of AAA and requested imaging of his AAA prior to accepting the patient for admission. Therefore, the patient was sent back down to CT scan for CTA of the abdomen and pelvis with IV contrast. CT of the chest with IV contrast showed no evidence for PE. It does show bronchitis and bilateral lower lobe pneumonia. There are multiple incompletely healed right posterior rib fractures as well. CTA of the abdomen and pelvis with IV contrast shows a stable 3.6 cm infrarenal abdominal aortic aneurysm without dissection or hemorrhage. 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 No evidence of acute pancreatitis. New trace bilateral pleural effusions with bilateral lower lobe bronchitis and pneumonia. Moderately distended urinary bladder. Hepatic steatosis. I contacted Dr. Elizalde back as the patient's repeat high-sensitivity troponin had increased to 5108.6. She stated that the echocardiogram showed some questionable wall motion abnormality that appeared new from December with the official report was still pending. She recommended to starting the heparin bolus and drip given the results of the CTA of the chest, abdomen, and pelvis. Heparin bolus and drip was initiated. Cardiology will continue to follow on consult. I spoke with the on-call hospitalist again in regards to the patient given the CT scan findings, cardiology recommendations, and increased high-sensitivity troponin. The on-call hospitalist accepted the patient for admission at this time. Please refer to their dictation for further details. The patient's care was transferred in serious, but stable condition. DIAGNOSIS: NSTEMI Bilateral lower lobe pneumonia CHF Hypomagnesemia Past Med/Surg History Problem List (Updated 05/21/25 @ 18:12 by Elsa Colón PA-C) Hypomagnesemia (Acute) CHF (congestive heart failure) (Acute) Bilateral lower lobe pneumonia (Acute) NSTEMI (non-ST elevated myocardial infarction) (Acute) Right rib fracture (Acute) Pancreatic abnormality Ribs, multiple fractures Right inguinal pain Back pain Screening for prostate cancer Vitamin D deficiency Heart disease (Chronic) Hypotension Pneumonia Gout Dermatochalasis of both eyelids HTN (hypertension) Type 2 diabetes mellitus Hyperlipidemia Hypothyroidism Encounter for pre-operative examination History of PTCA CAD (coronary artery disease) Actinic keratosis AAA (abdominal aortic aneurysm) BEING MONITORED YEARLY (DR. LIVE) Medical History (Updated 05/21/25 @ 18:12 by Elsa Colón PA-C) Exertional chest pain Elevated troponin SOB (shortness of breath) Elevated troponin Fall Acute electrocardiogram changes Leukocytosis History of kidney stones NO SURGERY Borderline diabetes History of skin cancer Hypothyroidism Myocardial Infarction 1994 Hypertension Hyperlipidemia History of COVID-12 MARCH 2020 (NO SYMPTOMS) Hx of gout Surgical History History of cataract surgery left cataract History of colonoscopy History of tooth extraction Chalazion of both eyes EXCISION History of cardiac cath NO STENTS (1994) Family History Father Coronary heart disease Myocardial infarction Mother No problems noted. Other Diabetes No family history of adverse response to anesthesia Denies family history of Colon cancer Ovarian cancer Prostate cancer Breast cancer Social History Smoking Status: Current every day smoker Tobacco Type: Cigars Age Started Using Tobacco: 22; Cigarettes Per Day: 1; Second Hand Exposure: No; Do You Dip or Chew Tobacco: Yes; Tobacco Cessation Education Requested by Patient: No Hx Alcohol Use: Yes Alcohol type: beer Alcohol Intake Frequency Comment: social Hx Substance Use: No Preferred Language: Icelandic Communication Ability: Effective Visual Impairment: No Limitations Hearing Ability: Normal [employer] Required: No Beliefs That Will Affect Care: None marital status: / Current Living Situation: Alone current occupational status: retired Other Information That Helps Us Care for You: No Feels Safe at Home: Yes Safety Concerns: Feels Safe At This Time Childhood Exposure to Second-Hand Smoke: Yes Dental Care, Regularly: Yes Physical Activity Frequency: 3-4 Times per Week Physical Activity Frequency Comment: Very active Seatbelt Use: always Sunscreen Use: No Assistive Devices: None Allergies Allergies Allergy/AdvReac Type Severity Reaction Status Date / Time No Known Drug Allergies Allergy Verified 05/03/25 12:39 Home Meds Home Medications Medication Instructions Recorded Confirmed aspirin 81 mg tablet,delayed 81 mg PO QAM 01/07/21 05/21/25 release (Sujey Low Dose Aspirin) cholecalciferol (vitamin D3) 50 50 mcg PO DAILY 11/20/21 05/21/25 mcg (2,000 unit) capsule levothyroxine 50 mcg tablet 50 mcg PO QAM 05/21/25 05/21/25 lidocaine 5 % topical patch 1 patch transdermal Q12H 05/21/25 05/21/25 Previous Rx's Medication Instructions Recorded atenolol 25 mg tablet 12.5 mg (1/2 x 25 mg) PO QAM #45 04/20/24 tabs isosorbide mononitrate 10 mg tablet 10 mg PO BID #180 tabs 08/08/24 nitroglycerin 0.4 mg sublingual 0.4 mg sublingual Q5M PRN chest 10/11/24 tablet pain #20 tabs ranolazine 500 mg tablet,extended 500 mg PO BID #180 tabs 12/13/24 release,12 hr simvastatin 80 mg tablet See Rx Instructions .Route 05/15/25 .COMPLEX #90 tabs Results & Data (ED) Vital Signs Vital Signs - 24 hr 05/21/25 09:18 05/21/25 09:27 05/21/25 09:43 Temperature 36.3 C L Temperature Source Temporal Artery Scan Pulse Rate 73 64 66 Pulse Rate [Apical] Pulse Rate from SpO2 Sensor Pulse Rhythm Regular Regular Pulse Rhythm [Apical] Respiratory Rate 20 17 Respiratory Effort / Characteristics Non-Labored Spontaneous Respiratory Depth Normal Respiratory Pattern Regular Blood Pressure 98/63 L Blood Pressure [Left Arm] Blood Pressure Mean 74 Blood Pressure Mean [Left Arm] Blood Pressure Position Sitting Pulse Oximetry 93 94 Oxygen Delivery Method Room Air Room Air Sepsis Recent Fever Within 48 Hours No Sepsis New/Unexplained Change in Mental Status No Sepsis Action Taken by Nursing No Action Required 05/21/25 10:00 05/21/25 10:30 05/21/25 11:00 Temperature Temperature Source Pulse Rate 71 64 62 Pulse Rate [Apical] Pulse Rate from SpO2 Sensor 70 65 63 Pulse Rhythm Pulse Rhythm [Apical] Respiratory Rate 24 23 15 Respiratory Effort / Characteristics Respiratory Depth Respiratory Pattern Blood Pressure 94/59 L 99/58 L 95/60 L Blood Pressure [Left Arm] Blood Pressure Mean 70 71 71 Blood Pressure Mean [Left Arm] Blood Pressure Position Pulse Oximetry 97 95 94 Oxygen Delivery Method Sepsis Recent Fever Within 48 Hours Sepsis New/Unexplained Change in Mental Status Sepsis Action Taken by Nursing 05/21/25 11:30 05/21/25 12:56 05/21/25 13:42 Temperature Temperature Source Pulse Rate 61 56 L Pulse Rate [Apical] 58 L Pulse Rate from SpO2 Sensor 61 Pulse Rhythm Pulse Rhythm [Apical] Regular Respiratory Rate 22 19 Respiratory Effort / Characteristics Non-Labored Spontaneous Respiratory Depth Normal Respiratory Pattern Blood Pressure 91/63 L Blood Pressure [Left Arm] 102/64 Blood Pressure Mean 72 Blood Pressure Mean [Left Arm] 76 Blood Pressure Position Pulse Oximetry 94 97 Oxygen Delivery Method Room Air Sepsis Recent Fever Within 48 Hours Sepsis New/Unexplained Change in Mental Status Sepsis Action Taken by Nursing Laboratory Data 05/21/25 09:30 05/21/25 09:30 Lab Results 05/21/25 05/21/25 05/21/25 Range/Units 09:30 10:00 10:30 WBC 18.61 H (4.8-10.8) K/ul RBC 3.82 L (4.70-6.10) M/uL Hgb 12.2 L (14.0-18.0) g/dL Hct 35.7 L (42.0-52.0) % MCV 93.5 (80.0-100.0) fL MCH 31.9 (25.0-34.0) pg MCHC 34.2 (32.0-36.0) g/dL RDW Std Deviation 45.2 (36.4-46.3) fL RDW Coeff of Preston 13.2 (11.5-14.5) % Plt Count 188 (130-400) K/uL MPV 10.8 (9.4-12.4) fL Immature Gran % (Auto) 0.9 % Neut % (Auto) 79.1 % Lymph % (Auto) 8.8 % Sioux % (Auto) 10.9 % Eos % (Auto) 0.1 % Baso % (Auto) 0.2 % Neut # (Auto) 14.75 H (1.40-6.50) K/uL Lymph # (Auto) 1.63 (1.20-3.40) K/uL [place]oux # (Auto) 2.02 H (0.11-0.59) K/uL Eos # (Auto) 0.01 (0.00-0.50) K/uL Baso # (Auto) 0.04 (0.00-0.20) K/uL Immature Gran # (Auto) 0.16 (0.01-0.20) K/uL PT 11.6 (9.0-12.0) Seconds INR 1.1 (0.9-1.1) APTT 25 (21-31) Seconds PTT Ratio 0.9 Sodium 134 L (136-145) mmol/L Potassium 4.1 (3.5-5.1) mmol/L Chloride 101 (98-107) mmol/L Carbon Dioxide 24 (21-32) mmol/L Anion Gap 9 (3-11) BUN 18 (6-23) mg/dl Creatinine 0.96 (0.6-1.4) mg/dl Est Cr Clr Drug Dosing 53.5 ml/min eGFR 76.50 BUN/Creatinine Ratio 18.8 (10-20) Glucose 153 H (70-99(Fasting)) mg/dl Lactate 1.1 (0.4-2.0) mmol/L Calcium 8.8 (8.6-10.3) mg/dl Magnesium 1.6 L (1.7-2.4) mg/dl Total Bilirubin 1.7 H (0.2-1.0) mg/dl AST 33 (13-39) U/L ALT 22 (7-52) U/L Alkaline Phosphatase 67 (34-104) U/L Troponin I High Sens 2040.0 H* (0-20) pg/ml B-Natriuretic Peptide 835 H (0-100) pg/ml Total Protein 6.8 (6.0-8.3) gm/dl Albumin 3.7 (3.4-5.0) gm/dl Globulin 3.1 (2.5-4.0) gm/dl Albumin/Globulin Ratio 1.2 (0.9-2) Lipase 23 (11-82) U/L Procalcitonin 0.07 (0-0.5) ng/ml SARS-CoV-2 (PCR) NEGATIVE (Negative) Influenza Type A (PCR) Negative (Neg) Influenza Type B (PCR) Negative (Neg) RSV (RT-PCR) Negative (Neg) 05/21/25 Range/Units 11:16 WBC (4.8-10.8) K/ul RBC (4.70-6.10) M/uL Hgb (14.0-18.0) g/dL Hct (42.0-52.0) % MCV (80.0-100.0) fL MCH (25.0-34.0) pg MCHC (32.0-36.0) g/dL RDW Std Deviation (36.4-46.3) fL RDW Coeff of Preston (11.5-14.5) % Plt Count (130-400) K/uL MPV (9.4-12.4) fL Immature Gran % (Auto) % Neut % (Auto) % Lymph % (Auto) % [place]oux % (Auto) % Eos % (Auto) % Baso % (Auto) % Neut # (Auto) (1.40-6.50) K/uL Lymph # (Auto) (1.20-3.40) K/uL [place] # (Auto) (0.11-0.59) K/uL Eos # (Auto) (0.00-0.50) K/uL Baso # (Auto) (0.00-0.20) K/uL Immature Gran # (Auto) (0.01-0.20) K/uL PT (9.0-12.0) Seconds INR (0.9-1.1) APTT (21-31) Seconds PTT Ratio Sodium (136-145) mmol/L Potassium (3.5-5.1) mmol/L Chloride (98-107) mmol/L Carbon Dioxide (21-32) mmol/L Anion Gap (3-11) BUN (6-23) mg/dl Creatinine (0.6-1.4) mg/dl Est Cr Clr Drug Dosing ml/min eGFR BUN/Creatinine Ratio (10-20) Glucose (70-99(Fasting)) mg/dl Lactate (0.4-2.0) mmol/L Calcium (8.6-10.3) mg/dl Magnesium (1.7-2.4) mg/dl Total Bilirubin (0.2-1.0) mg/dl AST (13-39) U/L ALT (7-52) U/L Alkaline Phosphatase (34-104) U/L Troponin I High Sens 5108.6 H* D (0-20) pg/ml B-Natriuretic Peptide (0-100) pg/ml Total Protein (6.0-8.3) gm/dl Albumin (3.4-5.0) gm/dl Globulin (2.5-4.0) gm/dl Albumin/Globulin Ratio (0.9-2) Lipase (11-82) U/L Procalcitonin (0-0.5) ng/ml SARS-CoV-2 (PCR) (Negative) Influenza Type A (PCR) (Neg) Influenza Type B (PCR) (Neg) RSV (RT-PCR) (Neg) Administered Medications Aspirin (Aspirin 81 Mg Ectab) [facility] [place] Stop: 06/20/25 15:52 Last Admin: 05/21/25 16:37 Dose: 81 mg Documented By: SEK Heparin Sodium/Dextrose (Heparin 20318 Unit/500 Ml D5w) 25,000 units in 500 mls @ 25 mls/hr IV .Q20H [place]; Protocol Stop: 06/20/25 14:14 Last Admin: 05/21/25 14:27 Dose: 1,250 units/hr, 25 mls/hr Documented By: TDM Co-signed By: LI Lidocaine (Lidocaine 5% 1 Patch) 1 patch TD DAILY@0900 [facility] Stop: 06/20/25 15:59 Last Admin: 05/21/25 16:14 Dose: Not Given Documented By: SEK Discontinued Medications Albuterol (Albut/Ipratrop 3mg/0.5mg Neb 3 Ml Vial) 3 ml NEB NOW STA; Protocol Stop: 05/21/25 09:32 Last Admin: 05/21/25 09:41 Dose: 3 ml Documented By: TDM Aspirin (Aspirin Chew 324 Mg) 324 mg PO NOW STA Stop: 05/21/25 09:30 Last Admin: 05/21/25 09:41 Dose: 324 mg Documented By: TDM Azithromycin (Azithromycin 250 Mg Tab) 500 mg PO NOW ONE Stop: 05/21/25 10:13 Last Admin: 05/21/25 10:26 Dose: 500 mg Documented By: TDM Furosemide (Furosemide Inj 20 Mg/2 Ml Vial) 20 mg IV ONE ONE Stop: 05/21/25 10:06 Last Admin: 05/21/25 10:26 Dose: 20 mg Documented By: LAUREN Heparin Sodium (Porcine) (Heparin Sod (Porcine) 1000 Unit/Ml) 1 units IV NOW ONE Stop: 05/21/25 14:07 Last Admin: 05/21/25 14:26 Dose: 6,000 units Documented By: TDM Co-signed By: LI Heparin Sodium/Dextrose (Heparin Iv Adult Wt-Based Standard W/ Initial Bolus Protocol) 1 each IV NOW STA; Protocol Stop: 05/21/25 10:31 Last Admin: 05/21/25 10:48 Dose: Not Given Documented By: LAUREN Heparin Sodium/Dextrose (Heparin Iv Adult Wt-Based Standard W/ Initial Bolus Protocol) 1 each IV NOW STA; Protocol Stop: 05/21/25 13:52 Last Admin: 05/21/25 14:39 Dose: Not Given Documented By: TDM Sodium Chloride (Nss) 250 mls @ 999 mls/hr IV .Q16M ONE Stop: 05/21/25 09:43 Last Infusion: 05/21/25 09:57 Dose: Infused Documented By: Admin: 05/21/25 09:41 Dose: 999 mls/hr Documented By: TDM Ceftriaxone Sodium (Rocephin) 2,000 mg in 50 mls @ 100 mls/hr IV NOW STA Stop: 05/21/25 10:41 Last Infusion: 05/21/25 11:00 Dose: Infused Documented By: Admin: 05/21/25 10:26 Dose: 100 mls/hr Documented By: TDM Magnesium Sulfate/Dextrose (Magnesium Sulfate / D5w) 1 gm in 100 mls @ 100 mls/hr IV NOW STA Stop: 05/21/25 11:12 Last Infusion: 05/21/25 11:30 Dose: Infused Documented By: Admin: 05/21/25 10:26 Dose: 100 mls/hr Documented By: GARCÍAM Ioversol (Optiray 320 125ml) 115 ml IV ONCE ONE Stop: 05/21/25 12:22 Last Admin: 05/21/25 12:21 Dose: 115 ml Documented By: COLIN Ioversol (Optiray 320 125ml) 85 ml IV ONCE ONE Stop: 05/21/25 12:50 Last Admin: 05/21/25 12:50 Dose: 85 ml Documented By: MATT Imaging Data Radiologist's Impression: Chest X-Ray 05/21/25 09:27 XR chest 1V portable CLINICAL HISTORY: Chest pain, cough, SOB COMPARISON STUDY: 01/02/2025 FINDINGS: Stable cardiomegaly with mild pulmonary vascular congestion. Inspiration is shallow. There is increased stranding opacity in the lung bases. No lobar consolidation or pleural effusion seen. No pneumothorax. IMPRESSION: 1. Mild CHF. 2. Increased atelectasis versus early pneumonia in the lung bases. ACT 112: Negative or not required by law. Electronically signed by: Ciro Niño M.D. 05/21/2025 9:54 AM Chest CTA 05/21/25 10:45 EXAM: CT Angiography Chest With Intravenous Contrast INDICATION: Midsternal chest pain and shortness of breath. TECHNIQUE: Axial computed tomographic angiography images of the chest with intravenous contrast. Sagittal and coronal reformatted images were created and reviewed. This CT exam was performed using one or more of the following dose reduction techniques: automated exposure control, adjustment of the mA and/or kV according to patient size, and/or use of iterative reconstruction technique. MIP reconstructed images were created and reviewed. CONTRAST: 115 ml of Optiray 320 was administered intravenously. COMPARISON: 01/02/2025 FINDINGS: Pulmonary arteries: No abnormality noted. No pulmonary embolism. Aorta: No acute change noted. No thoracic aortic aneurysm or dissection. Lungs and pleural spaces: There is severe airway thickening with segments of segmental and subsegmental plugging in the lower lobes. Patchy infiltrates present in the bilateral lower lobes. There is generalized reticulonodular scarring and probable pulmonary edema. No pneumothorax. No mass. No significant effusion. Heart: Prominent left atrium. Dense coronary calcification noted. No significant pericardial effusion. No evidence of RV dysfunction. Bones/joints: Multiple incompletely healed right posterior rib fractures now visible. Soft tissues: No abnormality noted. Lymph nodes: Mild increased prominence of reactive mediastinal nodes measuring less than 1 cm. IMPRESSION: 1. No pulmonary embolus noted. 2. Bronchitis and bilateral lower lobe pneumonia. 3. Multiple incompletely healed right posterior rib fractures now visible. ACT 112: N/A Electronically signed by Autumn Morales 05-21-2025 12:56 PM Abdomen/Pelvis CTA 05/21/25 12:25 EXAM: CT Angiography Abdomen and Pelvis With Intravenous Contrast INDICATION: Pain. TECHNIQUE: Axial computed tomographic angiography images of the abdomen and pelvis with intravenous contrast. Sagittal and coronal reformatted images were created and reviewed. This CT exam was performed using one or more of the following dose reduction techniques: automated exposure control, adjustment of the mA and/or kV according to patient size, and/or use of iterative reconstruction technique. MIP reconstructed images were created and reviewed. CONTRAST: 85 ml of Optiray 320 was administered intravenously. COMPARISON: CT abdomen 01/02/2025 FINDINGS: VASCULATURE: Aorta: Stable 3.6 cm infrarenal abdominal aortic aneurysm. No hemorrhage or dissection. There is generalized atherosclerosis of the aorta. Celiac trunk and mesenteric arteries: No acute change noted. No occlusion or significant stenosis. Renal arteries: There is bilateral atherosclerotic plaque in the origin of the renal arteries. Assessment for stenosis limited. No occlusion. Iliac arteries: No acute change noted. No occlusion or significant stenosis. Lung bases: No abnormality noted. No mass. No consolidation. Pleural space: Small layering bilateral pleural effusions are now present. There is moderate airway thickening with new ground glass infiltrates in the lower lobes right greater than left and in the lingula. Heart: The heart is enlarged. No right heart strain. ABDOMEN: Liver: Normal size and contour. Hypodense typical of steatosis. No mass or ductal dilation. Gallbladder and bile ducts: No abnormality noted. No calcified stones. No ductal dilation. Pancreas: Stable calcification in the uncinate. Probable ductal divisum with dilatation of the uncinate duct. Pancreatic head, body and tail appear normal without inflammation or ductal dilatation. Spleen: No abnormality noted. No splenomegaly. Adrenals: No abnormality noted. No mass. Kidneys and ureters: No abnormality noted. No hydronephrosis. No solid mass. Stomach and bowel: Moderate colonic stool and scattered diverticulosis. No diverticulitis. No obstruction. PELVIS: Appendix: Well seen and appears normal. Bladder: Moderately distended urinary bladder. No urinary bladder filling defect noted. Reproductive: No acute abnormality noted. ABDOMEN and PELVIS: Intraperitoneal space: No abnormality noted. No significant fluid collection. No free air. Bones/joints: No acute or atypical chronic changes. Soft tissues: Small fat-containing bilateral inguinal hernias. Lymph nodes: No abnormality noted. No enlarged lymph nodes. IMPRESSION: 1. Stable 3.6 cm infrarenal abdominal aortic aneurysm without dissection or hemorrhage. ACR White Paper guidelines (Khosa, et al. JACR 2013; 10(10):789-94) suggest abdomen/pelvis CT or MR imaging follow-up in 2 years. 2. 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 No evidence of acute pancreatitis. Impression new trace bilateral pleural effusions with bilateral lower lobe bronchitis and pneumonia. 3. Moderately distended urinary bladder. 4. Hepatic steatosis. ACT 112: N/A Electronically signed by Autumn Morales 05-21-2025 13:38 PM Discharge Plan Visit Data Chief Complaint: Chest Pain Stated Complaint: CHEST PAIN ED Provider: Jayro Rolon ED Midlevel Provider: Elsa Colón Discharge Problem: NSTEMI (non-ST elevated myocardial infarction), Bilateral lower lobe pneumonia, CHF (congestive heart failure), Hypomagnesemia Patient Disposition: Admitted As Inpatient Condition: Serious Discharge Instructions Interventions: ED Discharge Assessment Last Done: 05/21/25 15:24
[2025-05-21] MEDS: SODIUM CHLORIDE 0.9% 250 ML IV ONE (09:41)
[2025-05-21] MEDS: ASPIRIN CHEW 324 MG PO STA (09:41)
[2025-05-21] MEDS: ALBUT/IPRATROP 3MG/0.5MG NEB 3 ML VIAL NEB STA (09:41)
--- NOTE | 2025-05-21 09:56 | XRay Report ---
XR chest 1V portable CLINICAL HISTORY: Chest pain, cough, SOB COMPARISON STUDY: 01/02/2025 FINDINGS: Stable cardiomegaly with mild pulmonary vascular congestion. Inspiration is shallow. There is increased stranding opacity in the lung bases. No lobar consolidation or pleural effusion seen. No pneumothorax. IMPRESSION: 1. Mild CHF. 2. Increased atelectasis versus early pneumonia in the lung bases. ACT 112: Negative or not required by law. Electronically signed by: Ciro Niño M.D. 05/21/2025 9:54 AM
[2025-05-21 10:07] LABS: Alanine Aminotransferase 22.0 U/L (7-52); Albumin Globulin Ratio 1.2 (0.9-2); Albumin Level 3.7 gm/dl (3.4-5.0); Alkaline Phosphatase 67.0 U/L (34-104); Anion Gap 9.0 (3-11); Bilirubin,Total 1.7 mg/dl (0.2-1.0); Blood Urea Nitrogen 18.0 mg/dl (6-23); Calcium 8.8 mg/dl (8.6-10.3); Carbon Dioxide 24.0 mmol/L (21-32); Chloride 101.0 mmol/L (98-107); Creatinine Clr Calc Pharmacy 53.5 ml/min; Globulin 3.1 gm/dl (2.5-4.0); Glucose 153.0 mg/dl (70-99(Fasting)); Hematocrit (blood only) 35.7 % (42.0-52.0); Hemoglobin 12.2 g/dL (14.0-18.0); Lipase 23.0 U/L (11-82); Magnesium 1.6 mg/dl (1.7-2.4); Mean Corpuscular Hemoglobin 31.9 pg (25.0-34.0); Mean Corpuscular Volume 93.5 fL (80.0-100.0); Platelet Count 188 K/uL (130-400); Potassium 4.1 mmol/L (3.5-5.1); RDW Standard Deviation 45.2 fL (36.4-46.3); Red Blood Count 3.82 M/uL (4.70-6.10); Sodium 134.0 mmol/L (136-145); Total Protein 6.8 gm/dl (6.0-8.3); White Blood Count 18.61 K/ul (4.8-10.8)
[2025-05-21 10:09] LABS: Immature Granulocytes # (auto) 0.16 K/uL (0.01-0.20); Immature Granulocytes % (auto) 0.9 %
[2025-05-21 10:17] LABS: INR 1.1 (0.9-1.1); Partial Thromboplastin Time 25 Seconds (21-31); Prothrombin Time 11.6 Seconds (9.0-12.0)
[2025-05-21] MEDS: FUROSEMIDE INJ 20 MG/2 ML VIAL IV ONE (10:26)
[2025-05-21] MEDS: cefTRIAXone SODIUM 2,000 MG/50 ML BAG IV STA (10:26)
[2025-05-21] MEDS: MAGNESIUM SULFATE / D5W 1 GM/100 ML BAG IV STA (10:26)
[2025-05-21] MEDS: AZITHROMYCIN 250 MG TAB PO ONE (10:26)
[2025-05-21] MEDS ORDERED: HEPARIN SOD (PORCINE) 1000 UNIT/ML IV ONE (10:46)
[2025-05-21] MEDS: Heparin IV Adult Wt-Based Standard w/ INITIAL Bolus Protocol IV STA ×2 (10:48→14:39)
[2025-05-21] MEDS ORDERED: HEPARIN 25000 UNIT/500 ML D5W 25,000 UNITS/500 ML BAG IV SCH (11:00)
[2025-05-21 11:42] LABS: Influenza A virus by PCR Negative (Neg); Influenza B virus by PCR Negative (Neg); SARS CoV2 RNA(COVID-19) Ceph NEGATIVE (Negative)
[2025-05-21] MEDS: OPTIRAY 320 125ml IV ONE ×2 (12:21→12:50)
--- NOTE | 2025-05-21 12:56 | CT Scan Report ---
EXAM: CT Angiography Chest With Intravenous Contrast INDICATION: Midsternal chest pain and shortness of breath. TECHNIQUE: Axial computed tomographic angiography images of the chest with intravenous contrast. Sagittal and coronal reformatted images were created and reviewed. This CT exam was performed using one or more of the following dose reduction techniques: automated exposure control, adjustment of the mA and/or kV according to patient size, and/or use of iterative reconstruction technique. MIP reconstructed images were created and reviewed. CONTRAST: 115 ml of Optiray 320 was administered intravenously. COMPARISON: 01/02/2025 FINDINGS: Pulmonary arteries: No abnormality noted. No pulmonary embolism. Aorta: No acute change noted. No thoracic aortic aneurysm or dissection. Lungs and pleural spaces: There is severe airway thickening with segments of segmental and subsegmental plugging in the lower lobes. Patchy infiltrates present in the bilateral lower lobes. There is generalized reticulonodular scarring and probable pulmonary edema. No pneumothorax. No mass. No significant effusion. Heart: Prominent left atrium. Dense coronary calcification noted. No significant pericardial effusion. No evidence of RV dysfunction. Bones/joints: Multiple incompletely healed right posterior rib fractures now visible. Soft tissues: No abnormality noted. Lymph nodes: Mild increased prominence of reactive mediastinal nodes measuring less than 1 cm. IMPRESSION: 1. No pulmonary embolus noted. 2. Bronchitis and bilateral lower lobe pneumonia. 3. Multiple incompletely healed right posterior rib fractures now visible. ACT 112: N/A Electronically signed by Autumn Morales 05-21-2025 12:56 PM
--- NOTE | 2025-05-21 13:38 | CT Scan Report ---
EXAM: CT Angiography Abdomen and Pelvis With Intravenous Contrast INDICATION: Pain. TECHNIQUE: Axial computed tomographic angiography images of the abdomen and pelvis with intravenous contrast. Sagittal and coronal reformatted images were created and reviewed. This CT exam was performed using one or more of the following dose reduction techniques: automated exposure control, adjustment of the mA and/or kV according to patient size, and/or use of iterative reconstruction technique. MIP reconstructed images were created and reviewed. CONTRAST: 85 ml of Optiray 320 was administered intravenously. COMPARISON: CT abdomen 01/02/2025 FINDINGS: VASCULATURE: Aorta: Stable 3.6 cm infrarenal abdominal aortic aneurysm. No hemorrhage or dissection. There is generalized atherosclerosis of the aorta. Celiac trunk and mesenteric arteries: No acute change noted. No occlusion or significant stenosis. Renal arteries: There is bilateral atherosclerotic plaque in the origin of the renal arteries. Assessment for stenosis limited. No occlusion. Iliac arteries: No acute change noted. No occlusion or significant stenosis. Lung bases: No abnormality noted. No mass. No consolidation. Pleural space: Small layering bilateral pleural effusions are now present. There is moderate airway thickening with new ground glass infiltrates in the lower lobes right greater than left and in the lingula. Heart: The heart is enlarged. No right heart strain. ABDOMEN: Liver: Normal size and contour. Hypodense typical of steatosis. No mass or ductal dilation. Gallbladder and bile ducts: No abnormality noted. No calcified stones. No ductal dilation. Pancreas: Stable calcification in the uncinate. Probable ductal divisum with dilatation of the uncinate duct. Pancreatic head, body and tail appear normal without inflammation or ductal dilatation. Spleen: No abnormality noted. No splenomegaly. Adrenals: No abnormality noted. No mass. Kidneys and ureters: No abnormality noted. No hydronephrosis. No solid mass. Stomach and bowel: Moderate colonic stool and scattered diverticulosis. No diverticulitis. No obstruction. PELVIS: Appendix: Well seen and appears normal. Bladder: Moderately distended urinary bladder. No urinary bladder filling defect noted. Reproductive: No acute abnormality noted. ABDOMEN and PELVIS: Intraperitoneal space: No abnormality noted. No significant fluid collection. No free air. Bones/joints: No acute or atypical chronic changes. Soft tissues: Small fat-containing bilateral inguinal hernias. Lymph nodes: No abnormality noted. No enlarged lymph nodes. IMPRESSION: 1. Stable 3.6 cm infrarenal abdominal aortic aneurysm without dissection or hemorrhage. ACR White Paper guidelines (Destinee, et al. JACR 2013; 10(10):789-94) suggest abdomen/pelvis CT or MR imaging follow-up in 2 years. 2. 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 No evidence of acute pancreatitis. Impression new trace bilateral pleural effusions with bilateral lower lobe bronchitis and pneumonia. 3. Moderately distended urinary bladder. 4. Hepatic steatosis. ACT 112: N/A Electronically signed by Autumn Morales 05-21-2025 13:38 PM
[2025-05-21] MEDS: HEPARIN SOD (PORCINE) 1000 UNIT/ML IV ONE (14:26)
[2025-05-21] MEDS: HEPARIN 25000 UNIT/500 ML D5W 25,000 UNITS/500 ML BAG IV SCH (14:27)
--- NOTE | 2025-05-21 15:18 | History & Physical Report ---
Date of Service May 21, 2025 Assessment & Plan (1) Heart disease: (2) HTN (hypertension): (3) Hypothyroidism: (4) CAD (coronary artery disease): (5) Hyperlipidemia: Admission and Anticipated Discharge Date Admission Date: 89-year-old male with a past medical history of coronary artery disease, hypertension, hypothyroidism, history of AAA, presents to the hospital with chest pain and found to have multifocal pneumonia and NSTEMI: # NSTEMI #history of angina -Admit to PCU with monitor telemetry - patient ordered for heparin drip,cardiology consultation pending -Patient with significant rise in troponin, denies any current chest pain at this time -Continue low-dose beta-keely, aspirin - continue home medications including isosorbide, Ranexa, simvastatin -Await echocardiogram results #Bilateral lower lobe pneumonia -Continue intravenous antibiotics -Consider checking sputum culture -Viral panel negative -[employer] evaluation due to history of poor dentition -Soft diet -IS/ACapella -oxygen support as needed #Hyperbilirubinemia -Continue to trend, possibly due to acute infectious process #Hypomagnesemia -Replete as needed based on labs #Type 2 diabetes mellitus -Consider sliding scale, diabetic diet #hypothyroidism -Continue home levothyroxine dosing #Hyponatremia - continue to monitor, within close range CODE STATUS was reviewed with the patient and he currently request to be DNR/DNI Continue to have ongoing discussions about goals of care and resuscitation. DVT prophylaxisheparin drip History of Present Illness Chief Complaint: chest discomfort Primary Care Provider: Kenrick Morrow MD 89-year-old male with a past medical history as below presents to the hospital with complaints of chest discomfort which he describes as ongoing for at least 1 week. He mentions that his chest pain has been localized to both sides, next to the sternum. He describes the pain as pressure-like. He mentions that he took 2 nitroglycerin overnight at around 3 and 330 with some mild improvement. He describes it being as short of breath with this chest pain. He describes the chest pain as intermittent, with no nausea or vomiting. He also has had a cough which has been intermittently productive of clear sputum. Describes having some blood-tinged to room over the last 24 hours. He mentions he has had some chills, and subjective fevers but has not taken his temperature. His appetite has been limited due to him not having dentures and poor dentition. He denies having any abdominal discomfort, no diarrhea. He mentions that his chest pain had progressively worsened and for this reason he decided to seek medical care. Allergies Allergy/AdvReac Type Severity Reaction Status Date / Time No Known Drug Allergies Allergy Verified 05/03/25 12:39 Home Medications Medication Instructions Recorded Confirmed Type aspirin 81 mg tablet,delayed 81 mg PO QAM 01/07/21 05/21/25 History release (Sujey Low Dose Aspirin) cholecalciferol (vitamin D3) 50 50 mcg PO DAILY 11/20/21 05/21/25 History mcg (2,000 unit) capsule atenolol 25 mg tablet 12.5 mg (1/2 x 25 mg) PO QAM #45 04/20/24 05/21/25 Rx tabs isosorbide mononitrate 10 mg tablet 10 mg PO BID #180 tabs 08/08/24 05/21/25 Rx nitroglycerin 0.4 mg sublingual 0.4 mg sublingual Q5M PRN chest 10/11/24 05/21/25 Rx tablet pain #20 tabs ranolazine 500 mg tablet,extended 500 mg PO BID #180 tabs 12/13/24 05/21/25 Rx release,12 hr simvastatin 80 mg tablet See Rx Instructions .Route 05/15/25 05/21/25 Rx .COMPLEX #90 tabs levothyroxine 50 mcg tablet 50 mcg PO QAM 05/21/25 05/21/25 History lidocaine 5 % topical patch 1 patch transdermal Q12H 05/21/25 05/21/25 History Past Med/Surg History Problem List (Updated 05/03/25 @ 13:07 by Kenrick Morrow MD) Right rib fracture (Acute) Pancreatic abnormality Ribs, multiple fractures Right inguinal pain Back pain Screening for prostate cancer Vitamin D deficiency Heart disease (Chronic) Hypotension Pneumonia Gout Dermatochalasis of both eyelids HTN (hypertension) Type 2 diabetes mellitus Hyperlipidemia Hypothyroidism Encounter for pre-operative examination History of PTCA CAD (coronary artery disease) Actinic keratosis AAA (abdominal aortic aneurysm) BEING MONITORED YEARLY (DR. CEE) Medical History (Updated 05/03/25 @ 13:07 by Kenrick Morrow MD) Exertional chest pain Elevated troponin SOB (shortness of breath) Elevated troponin Fall Acute electrocardiogram changes Leukocytosis History of kidney stones NO SURGERY Borderline diabetes History of skin cancer Hypothyroidism Myocardial Infarction 1994 Hypertension Hyperlipidemia History of COVID-12 MARCH 2020 (NO SYMPTOMS) Hx of gout Surgical History History of cataract surgery left cataract History of colonoscopy History of tooth extraction Chalazion of both eyes EXCISION History of cardiac cath NO STENTS (1994) Family History Father Coronary heart disease Myocardial infarction Mother No problems noted. Other Diabetes No family history of adverse response to anesthesia Denies family history of Colon cancer Ovarian cancer Prostate cancer Breast cancer Social History Smoking Status: Never smoker Tobacco Type: Cigars Age Started Using Tobacco: 22; Cigarettes Per Day: 1; Second Hand Exposure: No; Do You Dip or Chew Tobacco: Yes; Hx Alcohol Use: No Hx Substance Use: No Preferred Language: Telugu Communication Ability: Effective Visual Impairment: No Limitations Hearing Ability: Normal Mononitrotoluene Operator Required: No Beliefs That Will Affect Care: None marital status: / Current Living Situation: Alone current occupational status: retired Feels Safe at Home: Yes Childhood Exposure to Second-Hand Smoke: Yes Dental Care, Regularly: Yes Physical Activity Frequency: 3-4 Times per Week Physical Activity Frequency Comment: Very active Seatbelt Use: always Sunscreen Use: No Assistive Devices: None Physical Exam Physical Exam: Gen-pt in NAD, awake and alert CVS-+s1,s2, RRR, no murmurs Lungs-bibasilar rales. GI-+ bs, normoactive, NT, ND Ext-no edema, no cyanosis Neuro-grossly intact Results & Data Results & Data Vital Signs (Past 12 Hours) Vital Signs Temp Pulse Pulse Resp BP BP Pulse Ox 05/21/25 13:42 56 L 05/21/25 12:56 58 L 19 102/64 97 05/21/25 11:30 61 22 91/63 L 94 05/21/25 11:00 62 15 95/60 L 94 05/21/25 10:30 64 23 99/58 L 95 05/21/25 10:00 71 24 94/59 L 97 05/21/25 09:43 66 05/21/25 09:27 64 17 94 05/21/25 09:18 36.3 C L 73 20 98/63 L 93 O2 Del Method 05/21/25 13:42 05/21/25 12:56 Room Air 05/21/25 11:30 05/21/25 11:00 05/21/25 10:30 05/21/25 10:00 05/21/25 09:43 05/21/25 09:27 Room Air 05/21/25 09:18 Room Air Laboratory Results 05/21/25 12:00 Gram Stain - Final Sputum, Expectorated Sputum Culture - Pending 05/21/25 10:19 Aerobic Blood Culture - Pending Blood Anaerobic Blood Culture - Pending 05/21/25 10:00 Aerobic Blood Culture - Pending Blood Anaerobic Blood Culture - Pending 05/21/25 05/21/25 05/21/25 11:16 10:30 10:00 WBC RBC Hgb Hct MCV MCH MCHC RDW Std Deviation RDW Coeff of [place] Plt Count MPV Immature Gran % (Auto) Neut % (Auto) Lymph % (Auto) [place] % (Auto) Eos % (Auto) Baso % (Auto) Neut # (Auto) Lymph # (Auto) [place] # (Auto) Eos # (Auto) Baso # (Auto) Immature Gran # (Auto) PT INR APTT PTT Ratio Sodium Potassium Chloride Carbon Dioxide Anion Gap BUN Creatinine Est Cr Clr Drug Dosing eGFR BUN/Creatinine Ratio Glucose Lactate Calcium Magnesium Total Bilirubin AST ALT Alkaline Phosphatase Troponin I High Sens 5108.6 H* D B-Natriuretic Peptide 835 H Total Protein Albumin Globulin Albumin/Globulin Ratio Lipase Procalcitonin SARS-CoV-2 (PCR) NEGATIVE Influenza Type A (PCR) Negative Influenza Type B (PCR) Negative RSV (RT-PCR) Negative 05/21/25 09:30 WBC 18.61 H RBC 3.82 L Hgb 12.2 L Hct 35.7 L MCV 93.5 MCH 31.9 MCHC 34.2 RDW Std Deviation 45.2 RDW Coeff of [place] 13.2 Plt Count 188 MPV 10.8 Immature Gran % (Auto) 0.9 Neut % (Auto) 79.1 Lymph % (Auto) 8.8 [place] % (Auto) 10.9 Eos % (Auto) 0.1 Baso % (Auto) 0.2 Neut # (Auto) 14.75 H Lymph # (Auto) 1.63 [place] # (Auto) 2.02 H Eos # (Auto) 0.01 Baso # (Auto) 0.04 Immature Gran # (Auto) 0.16 PT 11.6 INR 1.1 APTT 25 PTT Ratio 0.9 Sodium 134 L Potassium 4.1 Chloride 101 Carbon Dioxide 24 Anion Gap 9 BUN 18 Creatinine 0.96 Est Cr Clr Drug Dosing 53.5 eGFR 76.50 BUN/Creatinine Ratio 18.8 Glucose 153 H Lactate 1.1 Calcium 8.8 Magnesium 1.6 L Total Bilirubin 1.7 H AST 33 ALT 22 Alkaline Phosphatase 67 Troponin I High Sens 2040.0 H* B-Natriuretic Peptide Total Protein 6.8 Albumin 3.7 Globulin 3.1 Albumin/Globulin Ratio 1.2 Lipase 23 Procalcitonin 0.07 SARS-CoV-2 (PCR) Influenza Type A (PCR) Influenza Type B (PCR) RSV (RT-PCR) Diagnostic Findings Chest X-Ray 05/21/25 09:27 XR chest 1V portable CLINICAL HISTORY: Chest pain, cough, SOB COMPARISON STUDY: 01/02/2025 FINDINGS: Stable cardiomegaly with mild pulmonary vascular congestion. Inspiration is shallow. There is increased stranding opacity in the lung bases. No lobar consolidation or pleural effusion seen. No pneumothorax. IMPRESSION: 1. Mild CHF. 2. Increased atelectasis versus early pneumonia in the lung bases. ACT 112: Negative or not required by law. Electronically signed by: Ciro Niño M.D. 05/21/2025 9:54 AM Chest CTA 05/21/25 10:45 EXAM: CT Angiography Chest With Intravenous Contrast INDICATION: Midsternal chest pain and shortness of breath. TECHNIQUE: Axial computed tomographic angiography images of the chest with intravenous contrast. Sagittal and coronal reformatted images were created and reviewed. This CT exam was performed using one or more of the following dose reduction techniques: automated exposure control, adjustment of the mA and/or kV according to patient size, and/or use of iterative reconstruction technique. MIP reconstructed images were created and reviewed. CONTRAST: 115 ml of Optiray 320 was administered intravenously. COMPARISON: 01/02/2025 FINDINGS: Pulmonary arteries: No abnormality noted. No pulmonary embolism. Aorta: No acute change noted. No thoracic aortic aneurysm or dissection. Lungs and pleural spaces: There is severe airway thickening with segments of segmental and subsegmental plugging in the lower lobes. Patchy infiltrates present in the bilateral lower lobes. There is generalized reticulonodular scarring and probable pulmonary edema. No pneumothorax. No mass. No significant effusion. Heart: Prominent left atrium. Dense coronary calcification noted. No significant pericardial effusion. No evidence of RV dysfunction. Bones/joints: Multiple incompletely healed right posterior rib fractures now visible. Soft tissues: No abnormality noted. Lymph nodes: Mild increased prominence of reactive mediastinal nodes measuring less than 1 cm. IMPRESSION: 1. No pulmonary embolus noted. 2. Bronchitis and bilateral lower lobe pneumonia. 3. Multiple incompletely healed right posterior rib fractures now visible. ACT 112: N/A Electronically signed by Autumn Morales 05-21-2025 12:56 PM Abdomen/Pelvis CTA 05/21/25 12:25 EXAM: CT Angiography Abdomen and Pelvis With Intravenous Contrast INDICATION: Pain. TECHNIQUE: Axial computed tomographic angiography images of the abdomen and pelvis with intravenous contrast. Sagittal and coronal reformatted images were created and reviewed. This CT exam was performed using one or more of the following dose reduction techniques: automated exposure control, adjustment of the mA and/or kV according to patient size, and/or use of iterative reconstruction technique. MIP reconstructed images were created and reviewed. CONTRAST: 85 ml of Optiray 320 was administered intravenously. COMPARISON: CT abdomen 01/02/2025 FINDINGS: VASCULATURE: Aorta: Stable 3.6 cm infrarenal abdominal aortic aneurysm. No hemorrhage or dissection. There is generalized atherosclerosis of the aorta. Celiac trunk and mesenteric arteries: No acute change noted. No occlusion or significant stenosis. Renal arteries: There is bilateral atherosclerotic plaque in the origin of the renal arteries. Assessment for stenosis limited. No occlusion. Iliac arteries: No acute change noted. No occlusion or significant stenosis. Lung bases: No abnormality noted. No mass. No consolidation. Pleural space: Small layering bilateral pleural effusions are now present. There is moderate airway thickening with new ground glass infiltrates in the lower lobes right greater than left and in the lingula. Heart: The heart is enlarged. No right heart strain. ABDOMEN: Liver: Normal size and contour. Hypodense typical of steatosis. No mass or ductal dilation. Gallbladder and bile ducts: No abnormality noted. No calcified stones. No ductal dilation. Pancreas: Stable calcification in the uncinate. Probable ductal divisum with dilatation of the uncinate duct. Pancreatic head, body and tail appear normal without inflammation or ductal dilatation. Spleen: No abnormality noted. No splenomegaly. Adrenals: No abnormality noted. No mass. Kidneys and ureters: No abnormality noted. No hydronephrosis. No solid mass. Stomach and bowel: Moderate colonic stool and scattered diverticulosis. No diverticulitis. No obstruction. PELVIS: Appendix: Well seen and appears normal. Bladder: Moderately distended urinary bladder. No urinary bladder filling defect noted. Reproductive: No acute abnormality noted. ABDOMEN and PELVIS: Intraperitoneal space: No abnormality noted. No significant fluid collection. No free air. Bones/joints: No acute or atypical chronic changes. Soft tissues: Small fat-containing bilateral inguinal hernias. Lymph nodes: No abnormality noted. No enlarged lymph nodes. IMPRESSION: 1. Stable 3.6 cm infrarenal abdominal aortic aneurysm without dissection or hemorrhage. ACR White Paper guidelines (Destinee, et al. JACR 2013; 10(10):789-94) suggest abdomen/pelvis CT or MR imaging follow-up in 2 years. 2. 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 No evidence of acute pancreatitis. Impression new trace bilateral pleural effusions with bilateral lower lobe bronchitis and pneumonia. 3. Moderately distended urinary bladder. 4. Hepatic steatosis. ACT 112: N/A Electronically signed by Autumn Morales 05-21-2025 13:38 PM Code Status & VTE Plan VTE Prophylaxis Plan VTE Prophylaxis will be ordered: Yes PG Care Time/CCT Total # of Minutes Spent Total Time Spent with Patient: Total time spent is greater than 50% in coordination of care (as documented) at patient's floor/unit and/or counseling patient: Coding Level of Care Code 94428 INT INP/OBS CARE 3/75MIN Diagnoses Heart disease I51.9 Primary hypertension I10 Hypertension type: primary hypertension Hypothyroidism E03.9 Coronary artery disease involving [place] coronary artery of [place] heart with angina pectoris I25.119 Associated angina: with unspecified form of angina Coronary Disease-Associated Artery/Lesion type: [place] artery [place] vs. transplanted heart: [place] heart Mixed hyperlipidemia E78.2 Hyperlipidemia type: mixed hyperlipidemia (2) HTN (hypertension) Hypertension type: primary hypertension Qualified Code(s): I10 - Essential (primary) hypertension (4) CAD (coronary artery disease) Associated angina: with unspecified form of angina Coronary Disease- Associated Artery/Lesion type: [place] artery [place] vs. transplanted heart: [place] heart Qualified Code(s): I25.119 - Atherosclerotic heart disease of [place] coronary artery with unspecified angina pectoris (5) Hyperlipidemia Hyperlipidemia type: mixed hyperlipidemia Qualified Code(s): E78.2 - Mixed hyperlipidemia
[2025-05-21] MEDS ORDERED: MAGNESIUM HYDROXIDE SUSP 30 ML UDC PO PRN (15:53)
[2025-05-21] MEDS ORDERED: NITROGLYCERIN SL 0.4 MG/TAB TAB SL PRN (15:53)
[2025-05-21] MEDS ORDERED: ALUMINUM/MAGNESIUM SUSP 30 ML UDC PO PRN (15:53)
[2025-05-21] MEDS ORDERED: MELATONIN 3 MG TAB PO PRN (15:53)
[2025-05-21] MEDS ORDERED: ACETAMINOPHEN 325 MG TAB PO PRN (15:53)
[2025-05-21] MEDS: LIDOCAINE 5% 1 PATCH TD SCH (16:14)
[2025-05-21] MEDS: ASPIRIN 81 MG ECTAB PO SCH (16:37)
[2025-05-21] MEDS: RANOLAZINE 500 MG ER TAB PO SCH (20:18)
[2025-05-21] MEDS: METOPROLOL TARTRATE 25 MG TAB PO SCH (20:18)
[2025-05-21] MEDS: REMOVE LIDODERM PATCH SCH (20:18)
[2025-05-21] MEDS: SIMVASTATIN 80 MG TAB PO SCH (20:18)
[2025-05-21 21:16] LABS: ANTI-Xa, UFH(UnfractionatedHep 0.74 IU/ml (0.3-0.7)
[2025-05-22 04:16] LABS: ANTI-Xa, UFH(UnfractionatedHep 0.48 IU/ml (0.3-0.7)
[2025-05-22 04:30] LABS: Hematocrit (blood only) 32.9 % (42.0-52.0); Hemoglobin 11.4 g/dL (14.0-18.0); Mean Corpuscular Hemoglobin 32.4 pg (25.0-34.0); Mean Corpuscular Volume 93.5 fL (80.0-100.0); Platelet Count 160 K/uL (130-400); RDW Standard Deviation 46.0 fL (36.4-46.3); Red Blood Count 3.52 M/uL (4.70-6.10); White Blood Count 12.95 K/ul (4.8-10.8)
[2025-05-22 04:31] LABS: Immature Granulocytes # (auto) 0.09 K/uL (0.01-0.20); Immature Granulocytes % (auto) 0.7 %
[2025-05-22 04:32] LABS: Alanine Aminotransferase 25.0 U/L (7-52); Albumin Globulin Ratio 1.2 (0.9-2); Albumin Level 3.4 gm/dl (3.4-5.0); Alkaline Phosphatase 69.0 U/L (34-104); Anion Gap 8.0 (3-11); Bilirubin,Total 1.0 mg/dl (0.2-1.0); Blood Urea Nitrogen 18.0 mg/dl (6-23); Calcium 8.7 mg/dl (8.6-10.3); Carbon Dioxide 26.0 mmol/L (21-32); Chloride 101.0 mmol/L (98-107); Creatinine Clr Calc Pharmacy 47.4 ml/min; Globulin 2.9 gm/dl (2.5-4.0); Glucose 120.0 mg/dl (70-99(Fasting)); Magnesium 1.9 mg/dl (1.7-2.4); Potassium 3.8 mmol/L (3.5-5.1); Sodium 135.0 mmol/L (136-145); Total Protein 6.3 gm/dl (6.0-8.3)
[2025-05-22] MEDS: LEVOTHYROXINE SODIUM 50 MCG TABLET PO SCH (06:08)
[2025-05-22] MEDS: ISOSORBIDE DINITRATE 20 MG TAB PO SCH (08:35)
[2025-05-22] MEDS: CHOLECALCIFEROL 25 MCG (1000 UNITS) TAB PO SCH (08:36)
--- NOTE | 2025-05-22 11:21 | Electrocardiogram Report ---
Test Reason : Blood Pressure : */* mmHG Vent. Rate : 71 BPM Atrial Rate : 71 BPM P-R Int : 150 ms QRS Dur : 90 ms QT Int : 398 ms P-R-T Axes : 20 31 95 degrees QTcB Int : 432 ms Normal sinus rhythm Posterior infarct , age undetermined anteroseptal ST-T wave abnormality consistent with ischemia Abnormal ECG When compared with ECG of 02-Jan-2025 17:10, Criteria for Inferior-posterior infarct are no longer Present Nonspecific T wave abnormality no longer evident in Inferior leads T wave inversion less evident in Anterior leads Nonspecific T wave abnormality now evident in Lateral leads Confirmed by Radha Elizalde (Eve) on 05/22/2025 11:21:29 AM Referred By: REFERRED SELF Confirmed By: Radha Elizalde
--- NOTE | 2025-05-22 12:27 | Cardiology Consultation ---
Date of Consultation May 22, 2025 Assessment & Plan (1) Elevated troponin: -Do not feel that this represents an acute coronary syndrome. -Suspect this is a supply/demand mismatch (relative hypotension, LVH, bilobar pneumonia). -My interpretation of the echocardiogram notes normal systolic function without wall motion abnormalities. -No acute EKG changes. -No arrhythmias on equipment monitor phototypesetting. -Would discontinue heparin and ambulate. -Agree with change from atenolol to metoprolol to tartrate -Possible discharge tomorrow a.m. (2) Bilateral lower lobe pneumonia: -Antibiotic management per primary care team. (3) CAD (coronary artery disease): -History of IMI and PTCA of the PDA, August 1994. 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 -Negative dobutamine stress echocardiogram, October 2024. History of Present Illness Attending Physician: Moni Luu MD History of Present Illness Mr. Goodrich is an 89-year-old male admitted yesterday with by lobar lower lobe pneumonia. His high-sensitivity troponin level was elevated, therefore, this consultation was ordered. Of note, the patient is well-known to me from the outpatient setting. The patient was in his usual state of health until approximately 1 week prior to presentation when he began to note a productive cough, occasional hemoptysis, and pleuritic chest pain. He was also noticing chills and subjective fevers. He presented to the emergency room for further care. On arrival here, he was hypoxic and diagnosed with bilateral, lower lobar pneumonia. His high-sensitivity troponin was elevated, therefore, he was placed on intravenous heparin drip. At no time is the patient experience exertional angina pectoris. Of note, he did undergo a normal dobutamine stress echocardiogram back in October of this year. Currently, patient is resting comfortably in bed without complaints. Past medical and surgical history 1. Coronary artery disease 2. Inferior MIApril 1994 3. PDA PTCAApril 1994 4. Hypertension 5. LVH 6. Hypercholesterolemia 7. Peripheral vascular disease 8. AAA3.4 x 3.5, September 2023 9. Diabetes 10. Hypothyroidism 11. Gout 12. Vitamin D deficiency 13. Nephrolithiasis 14. Dental extractions Social history and lives with his No tobacco Occasional alcohol Family history Noncontributory Review of system A 10 point review of system was undertaken and negative except that described above. Allergies Allergy/AdvReac Type Severity Reaction Status Date / Time No Known Drug Allergies Allergy Verified 05/03/25 12:39 Home Medications Medication Instructions Recorded Confirmed Type aspirin 81 mg tablet,delayed 81 mg PO QAM 01/07/21 05/21/25 History release (Sujey Low Dose Aspirin) cholecalciferol (vitamin D3) 50 50 mcg PO DAILY 11/20/21 05/21/25 History mcg (2,000 unit) capsule atenolol 25 mg tablet 12.5 mg (1/2 x 25 mg) PO QAM #45 04/20/24 05/21/25 Rx tabs isosorbide mononitrate 10 mg tablet 10 mg PO BID #180 tabs 08/08/24 05/21/25 Rx nitroglycerin 0.4 mg sublingual 0.4 mg sublingual Q5M PRN chest 10/11/24 05/21/25 Rx tablet pain #20 tabs ranolazine 500 mg tablet,extended 500 mg PO BID #180 tabs 12/13/24 05/21/25 Rx release,12 hr simvastatin 80 mg tablet See Rx Instructions .Route 05/15/25 05/21/25 Rx .COMPLEX #90 tabs levothyroxine 50 mcg tablet 50 mcg PO QAM 05/21/25 05/21/25 History lidocaine 5 % topical patch 1 patch transdermal Q12H 05/21/25 05/21/25 History Patient History Medical History (Updated 05/22/25 @ 12:41 by Kenrick Live MD) Exertional chest pain SOB (shortness of breath) Elevated troponin Fall Acute electrocardiogram changes Leukocytosis History of kidney stones NO SURGERY Borderline diabetes History of skin cancer Hypothyroidism Myocardial Infarction 1994 Hypertension Hyperlipidemia History of COVID-12 MARCH 2020 (NO SYMPTOMS) Hx of gout Surgical History History of cataract surgery left cataract History of colonoscopy History of tooth extraction Chalazion of both eyes EXCISION History of cardiac cath NO STENTS (1994) Family History Father Coronary heart disease Myocardial infarction Mother No problems noted. Other Diabetes No family history of adverse response to anesthesia Denies family history of Colon cancer Ovarian cancer Prostate cancer Breast cancer Social History Smoking Status: Current every day smoker Tobacco Type: Cigars Age Started Using Tobacco: 22; Cigarettes Per Day: 1; Second Hand Exposure: No; Do You Dip or Chew Tobacco: Yes; Tobacco Cessation Education Requested by Patient: No Hx Alcohol Use: Yes Alcohol type: beer Alcohol Intake Frequency Comment: social Hx Substance Use: No Preferred Language: Upper Sorbian Communication Ability: Effective Visual Impairment: No Limitations Hearing Ability: Normal Cashier Tube Room Required: No Beliefs That Will Affect Care: None marital status: / Current Living Situation: Alone current occupational status: retired Other Information That Helps Us Care for You: No Feels Safe at Home: Yes Safety Concerns: Feels Safe At This Time Childhood Exposure to Second-Hand Smoke: Yes Dental Care, Regularly: Yes Physical Activity Frequency: 3-4 Times per Week Physical Activity Frequency Comment: Very active Seatbelt Use: always Sunscreen Use: No Assistive Devices: None Physical Exam Physical Exam: In general this is a well-developed well-nourished white male in no acute distress. HEENT exam is negative. Neck reveals normal carotid upstrokes without bruits. No jugular venous distention. There is no thyromegaly. Cardiovascular exam reveals a regular rhythm with a normal S1 and S2. No murmurs, S3, or S4 are noted. Lungs are clear without rales, rhonchi, or wheezes. Abdomen is soft without bruits. Extremities reveal intact radial artery and posterior tibial pulses bilaterally. There is no peripheral edema. Results & Data Vital Signs (Past 12 Hours) Vital Signs Temp Pulse Pulse Resp BP Pulse Ox O2 Del Method 05/22/25 11:37 36.6 C 58 L 18 109/70 93 Room Air 05/22/25 11:04 90 05/22/25 10:00 71 05/22/25 10:00 Room Air 05/22/25 07:36 36.8 C 66 18 111/73 94 Nasal Cannula 05/22/25 03:40 36.8 C 74 20 113/70 93 Room Air O2 Flow Rate 05/22/25 11:37 05/22/25 11:04 05/22/25 10:00 05/22/25 10:00 05/22/25 07:36 1 05/22/25 03:40 Laboratory Results Initial high-sensitivity troponin was 2040 with a peak value of 10,323. Diagnostic Findings My interpretation of the current echocardiogram notes low-normal systolic function with an ejection fraction of 50 to 55%. There are no obvious wall motion abnormalities. There is mild LVH along with mild mitral regurgitation. color television console monitor is benign. EKG notes sinus rhythm with early transition of the precordial R wave and a nonspecific ST abnormality. PG Care Time/CCT Total # of Minutes Spent Total Time Spent with Patient: Total time spent is greater than 50% in coordination of care (as documented) at patient's floor/unit and/or counseling patient: Coding Level of Care Code 78700 INT INP/OBS CARE MIN Diagnoses Elevated troponin R79.89 Bilateral lower lobe pneumonia J18.9 Coronary artery disease involving [place] coronary artery of [place] heart with angina pectoris I25.119 Coronary Disease-Associated Artery/Lesion type: [place] artery [place] vs. transplanted heart: [place] heart Associated angina: with unspecified form of angina (3) CAD (coronary artery disease) Coronary Disease-Associated Artery/Lesion type: [place] artery [place] vs. transplanted heart: [place] heart Associated angina: with unspecified form of angina Qualified Code(s): I25.119 - Atherosclerotic heart disease of [place] coronary artery with unspecified angina pectoris
[2025-05-22] MEDS: cefTRIAXone SODIUM 2,000 MG/50 ML BAG IV SCH (13:29)
[2025-05-22] MEDS: DOXYCYCLINE HYCLATE 100 MG CAP PO SCH (13:30)
--- NOTE | 2025-05-22 17:38 | Hospitalist Progress Note ---
Date of Service May 22, 2025 Assessment & Plan (1) Heart disease: (2) HTN (hypertension): (3) Hypothyroidism: (4) CAD (coronary artery disease): (5) Hyperlipidemia: Plan 89-year-old male with a past medical history of coronary artery disease, hypertension, hypothyroidism, history of AAA, presents to the hospital with chest pain and found to have multifocal pneumonia and NSTEMI: # NSTEMI #history of angina - Patient was on a heparin drip for 24 hours, reviewed with cardiology on 1229 and they do not believe the patient requires heparin furthermore and this has been stopped. -Patient with significant rise in troponin, denies any current chest pain. Patient's troponins at his highest were 10,322, have decreased to 3628 today. -Continue low-dose beta-keely, aspirin - continue home medications including isosorbide, Ranexa, simvastatin - Echocardiogram indicates LVH, EF of 30 to 35% with moderate anterior wall hypokinesis, lateral wall akinesis and grade 1 diastolic dysfunction. - Appreciate cardiology management, Please refer to their documentation for further input. #Bilateral lower lobe pneumonia -Continue intravenous antibiotics - Sputum cultures indicate haemophilus influenza. -Viral panel negative -ARBOREAL SCIENTIST evaluation Appreciated, will benefit from outpatient dental evaluation. -Soft diet -IS/ACapella -oxygen support as needed #Hyperbilirubinemia -Continue to trend, possibly due to acute infectious process #Hypomagnesemia -Replete as needed based on labs #Type 2 diabetes mellitus -Consider sliding scale, diabetic diet #hypothyroidism -Continue home levothyroxine dosing #Hyponatremia - continue to monitor, within close range Admission and Anticipated Discharge Date Admission Date: May 21, 2025 Physical Exam Physical Exam: Gen-pt in NAD, awake and alert CVS-+s1,s2, RRR, no murmurs Lungs-bibasilar rales. GI-+ bs, normoactive, NT, ND Ext-no edema, no cyanosis Neuro-grossly intact Results & Data Results & Data Vital Signs (Past 12 Hours) Vital Signs Temp Pulse Pulse Resp BP Pulse Ox O2 Del Method 05/22/25 15:53 69 05/22/25 14:56 36.7 C 66 18 110/68 93 Room Air 05/22/25 11:37 36.6 C 58 L 18 109/70 93 Room Air 05/22/25 11:04 90 05/22/25 10:00 71 05/22/25 10:00 Room Air 05/22/25 07:36 36.8 C 66 18 111/73 94 Nasal Cannula O2 Flow Rate 05/22/25 15:53 05/22/25 14:56 05/22/25 11:37 05/22/25 11:04 05/22/25 10:00 05/22/25 10:00 05/22/25 07:36 1 PG Care Time/CCT Total # of Minutes Spent Total Time Spent with Patient: Total time spent is greater than 50% in coordination of care (as documented) at patient's floor/unit and/or counseling patient: Coding Level of Care Code 82066 SUB INP/OBS CARE 3/50MIN Diagnoses Heart disease I51.9 Primary hypertension I10 Hypertension type: primary hypertension Hypothyroidism E03.9 Coronary artery disease involving [place] coronary artery of [place] heart with angina pectoris I25.119 Coronary Disease-Associated Artery/Lesion type: [place] artery [place] vs. transplanted heart: [place] heart Associated angina: with unspecified form of angina Mixed hyperlipidemia E78.2 Hyperlipidemia type: mixed hyperlipidemia (2) HTN (hypertension) Hypertension type: primary hypertension Qualified Code(s): I10 - Essential (primary) hypertension (4) CAD (coronary artery disease) Coronary Disease-Associated Artery/Lesion type: [place] artery [place] vs. transplanted heart: [place] heart Associated angina: with unspecified form of angina Qualified Code(s): I25.119 - Atherosclerotic heart disease of [place] coronary artery with unspecified angina pectoris (5) Hyperlipidemia Hyperlipidemia type: mixed hyperlipidemia Qualified Code(s): E78.2 - Mixed hyperlipidemia
[2025-05-23] MEDS: LEVALBUTEROL HCL 0.63 MG/3 ML NEB NEB STA (06:48)
[2025-05-23 06:52] VITALS: RESP 18
[2025-05-23 09:36] LABS: Alanine Aminotransferase 40.0 U/L (7-52); Albumin Globulin Ratio 1.1 (0.9-2); Albumin Level 3.6 gm/dl (3.4-5.0); Alkaline Phosphatase 76.0 U/L (34-104); Anion Gap 8.0 (3-11); Bilirubin,Total 0.9 mg/dl (0.2-1.0); Blood Urea Nitrogen 22.0 mg/dl (6-23); Calcium 9.1 mg/dl (8.6-10.3); Carbon Dioxide 26.0 mmol/L (21-32); Chloride 103.0 mmol/L (98-107); Creatinine Clr Calc Pharmacy 43.5 ml/min; Globulin 3.2 gm/dl (2.5-4.0); Glucose 145.0 mg/dl (70-99(Fasting)); Magnesium 1.8 mg/dl (1.7-2.4); Potassium 4.3 mmol/L (3.5-5.1); Sodium 137.0 mmol/L (136-145); Total Protein 6.8 gm/dl (6.0-8.3)
[2025-05-23 09:40] LABS: Hematocrit (blood only) 35.5 % (42.0-52.0); Hemoglobin 12.4 g/dL (14.0-18.0); Mean Corpuscular Hemoglobin 32.5 pg (25.0-34.0); Mean Corpuscular Volume 92.9 fL (80.0-100.0); Platelet Count 203 K/uL (130-400); RDW Standard Deviation 45.2 fL (36.4-46.3); Red Blood Count 3.82 M/uL (4.70-6.10); White Blood Count 12.48 K/ul (4.8-10.8)
[2025-05-23 09:46] LABS: Immature Granulocytes # (auto) 0.15 K/uL (0.01-0.20); Immature Granulocytes % (auto) 1.2 %
--- NOTE | 2025-05-23 11:15 | XRay Report ---
XR chest 2V PA/lateral CLINICAL HISTORY: hypoxia COMPARISON STUDY: 05/21/2025 FINDINGS: Stable cardiomegaly with mild pulmonary vascular congestion. Stable stranding opacity in th e lung bases, left greater than right. No pleural effusion or pneumothorax seen. IMPRESSION: Stable exam. ACT 112: Negative or not required by law. Electronically signed by: Ciro Niño M.D. 05/23/2025 11:13 AM
[2025-05-23 11:26] VITALS: O2SAT 94
--- NOTE | 2025-05-23 12:46 | Cardiology Progress Note ---
Date of Service May 23, 2025 Assessment & Plan (1) Elevated troponin: Plan: -Do not feel that this represents an acute coronary syndrome. -Suspect this is a supply/demand mismatch (relative hypotension, LVH, bilobar pneumonia). -My interpretation of the echocardiogram notes normal systolic function without wall motion abnormalities. -She ambulated in the hallways without difficulty this morning. -Stable for hospital discharge. (2) Bilateral lower lobe pneumonia: Plan: -Antibiotic management per primary care team. (3) CAD (coronary artery disease): Plan: -History of IMI and PTCA of the PDA, August 1994. 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 -Negative dobutamine stress echocardiogram, October 2024. Admission and Anticipated Discharge Date Admission Date: May 21, 2025 Subjective The patient is resting comfortably in bed with no complaints of chest pain or dyspnea. He did ambulate in the hallway today without chest discomfort or dyspnea. Did not require supplemental oxygen. He is anxious for hospital discharge. His family is at the bedside. Physical Exam Physical Exam: In general this is a well-developed well-nourished white male in no acute distress. HEENT exam is negative. Neck reveals normal carotid upstrokes without bruits. No jugular venous distention. There is no thyromegaly. Cardiovascular exam reveals a regular rhythm with a normal S1 and S2. No murmurs, S3, or S4 are noted. Lungs are clear without rales, rhonchi, or wheezes. Abdomen is soft without bruits. Extremities reveal intact radial artery pulses bilaterally. There is no peripheral edema. Results & Data Vital Signs (Past 12 Hours) Vital Signs Temp Pulse Pulse Pulse Pulse Pulse Pulse 05/23/25 11:17 79 82 72 05/23/25 10:46 36.7 C 68 05/23/25 07:29 36.9 C 85 05/23/25 07:00 95 H 05/23/25 07:00 05/23/25 06:49 79 05/23/25 06:27 05/23/25 06:26 87 05/23/25 03:25 37.1 C 69 05/23/25 01:35 63 Resp Resp Resp Resp BP Pulse Ox Pulse Ox 05/23/25 11:17 19 18 18 95 05/23/25 10:46 18 112/72 98 05/23/25 07:29 18 107/67 93 05/23/25 07:00 05/23/25 07:00 05/23/25 06:49 18 93 05/23/25 06:27 92 05/23/25 06:26 22 122/76 87 L 05/23/25 03:25 18 103/60 92 05/23/25 01:35 Pulse Ox Pulse Ox O2 Del Method O2 Flow Rate 05/23/25 11:17 94 94 05/23/25 10:46 Nasal Cannula 3 05/23/25 07:29 Nasal Cannula 3 05/23/25 07:00 05/23/25 07:00 Nasal Cannula 3 05/23/25 06:49 Nasal Cannula 3 05/23/25 06:27 Nasal Cannula 3 05/23/25 06:26 Room Air 05/23/25 03:25 Room Air 05/23/25 01:35 Diagnostic Findings senior controller notes sinus rhythm with occasional PVCs. PG Care Time/CCT Total # of Minutes Spent Total Time Spent with Patient: Total time spent is greater than 50% in coordination of care (as documented) at patient's floor/unit and/or counseling patient: Coding Level of Care Code 85952 SUB INP/OBS CARE 3/50MIN Diagnoses Elevated troponin R79.89 Bilateral lower lobe pneumonia J18.9 Coronary artery disease involving [place] coronary artery of [place] heart with angina pectoris I25.119 Coronary Disease-Associated Artery/Lesion type: [place] artery [place] vs. transplanted heart: [place] heart Associated angina: with unspecified form of angina (3) CAD (coronary artery disease) Coronary Disease-Associated Artery/Lesion type: [place] artery [place] vs. transplanted heart: [place] heart Associated angina: with unspecified form of angina Qualified Code(s): I25.119 - Atherosclerotic heart disease of [place] coronary artery with unspecified angina pectoris
--- NOTE | 2025-05-23 12:51 | Hospitalist Progress Note ---
Date of Service May 23, 2025 Assessment & Plan (1) Heart disease: (2) HTN (hypertension): (3) Hypothyroidism: (4) CAD (coronary artery disease): (5) Hyperlipidemia: Plan 89-year-old male with a past medical history of coronary artery disease, hypertension, hypothyroidism, history of AAA, presents to the hospital with chest pain and found to have multifocal pneumonia and NSTEMI: # NSTEMI #history of angina - Patient was on a heparin drip for 24 hours, reviewed with cardiology on 1229 and they do not believe the patient requires heparin furthermore and this has been stopped. -Patient with significant rise in troponin, denies any current chest pain. Patient's troponins at his highest were 10,322, have decreased to 3628, No need to trend. -Continue low-dose beta-keely, aspirin - continue home medications including isosorbide, Ranexa, simvastatin - Echocardiogram indicates LVH, EF of 30 to 35% with moderate anterior wall hypokinesis, lateral wall akinesis and grade 1 diastolic dysfunction. - Appreciate cardiology management, Please refer to their documentation for further input. #Bilateral lower lobe pneumonia #acute hypoxic respiratory failure -Continue intravenous antibiotics - Sputum cultures indicate haemophilus influenza. -Viral panel negative -SPRAY MACHINE LOADER evaluation Appreciated, will benefit from outpatient dental evaluation. -Soft diet -IS/ACapella -oxygen support as needed, continue to wean as tolerated - Home oxygen evaluation. #Hyperbilirubinemia -Continue to trend, possibly due to acute infectious process - this has resolved. #Hypomagnesemia -Replete as needed based on labs #Type 2 diabetes mellitus -Consider sliding scale, diabetic diet #hypothyroidism -Continue home levothyroxine dosing #Hyponatremia - continue to monitor, within close range - Normalized, likely due to acute infectious process. Admission and Anticipated Discharge Date Admission Date: May 21, 2025 Subjective Patient seen and examined. Patient placed on oxygen overnight, denies significant chest pain or cough at this time. No nausea or vomiting noted. Physical Exam Physical Exam: Gen-pt in NAD, awake and alert CVS-+s1,s2, RRR, no murmurs Lungs- Good air entry, no wheezing noted. GI-+ bs, normoactive, NT, ND Ext- trace edema, no cyanosis Neuro-grossly intact Results & Data Results & Data Vital Signs (Past 12 Hours) Vital Signs Temp Pulse Pulse Pulse Pulse Pulse Pulse 05/23/25 11:17 79 82 72 05/23/25 10:46 36.7 C 68 05/23/25 07:29 36.9 C 85 05/23/25 07:00 95 H 05/23/25 07:00 05/23/25 06:49 79 05/23/25 06:27 05/23/25 06:26 87 05/23/25 03:25 37.1 C 69 05/23/25 01:35 63 Resp Resp Resp Resp BP Pulse Ox Pulse Ox 05/23/25 11:17 19 18 18 95 05/23/25 10:46 18 112/72 98 05/23/25 07:29 18 107/67 93 05/23/25 07:00 05/23/25 07:00 05/23/25 06:49 18 93 05/23/25 06:27 92 05/23/25 06:26 22 122/76 87 L 05/23/25 03:25 18 103/60 92 05/23/25 01:35 Pulse Ox Pulse Ox O2 Del Method O2 Flow Rate 05/23/25 11:17 94 94 05/23/25 10:46 Nasal Cannula 3 05/23/25 07:29 Nasal Cannula 3 05/23/25 07:00 05/23/25 07:00 Nasal Cannula 3 05/23/25 06:49 Nasal Cannula 3 05/23/25 06:27 Nasal Cannula 3 05/23/25 06:26 Room Air 05/23/25 03:25 Room Air 05/23/25 01:35 Laboratory Results 05/21/25 10:19 Aerobic Blood Culture - Preliminary Blood No growth in Aerobic bottle after 48 hours. Anaerobic Blood Culture - Preliminary No growth in Anaerobic bottle after 48 hours. 05/21/25 10:00 Aerobic Blood Culture - Preliminary Blood No growth in Aerobic bottle after 48 hours. Anaerobic Blood Culture - Preliminary No growth in Anaerobic bottle after 48 hours. 05/21/25 12:00 Gram Stain - Final Sputum, Expectorated Sputum Culture - Final Ha[place].influ betalactamase neg 05/23/25 07:54 WBC 12.48 H RBC 3.82 L Hgb 12.4 L Hct 35.5 L MCV 92.9 MCH 32.5 MCHC 34.9 RDW Std Deviation 45.2 RDW Coeff of [place] 13.2 Plt Count 203 MPV 11.4 Immature Gran % (Auto) 1.2 Neut % (Auto) 76.4 Lymph % (Auto) 12.9 [place] % (Auto) 8.7 Eos % (Auto) 0.4 Baso % (Auto) 0.4 Neut # (Auto) 9.53 H Lymph # (Auto) 1.61 [place] # (Auto) 1.09 H Eos # (Auto) 0.05 Baso # (Auto) 0.05 Immature Gran # (Auto) 0.15 Sodium 137 Potassium 4.3 Chloride 103 Carbon Dioxide 26 Anion Gap 8 BUN 22 Creatinine 1.08 Est Cr Clr Drug Dosing 43.5 eGFR 66.42 BUN/Creatinine Ratio 20.4 H Glucose 145 H Calcium 9.1 Magnesium 1.8 Total Bilirubin 0.9 AST 49 H ALT 40 Alkaline Phosphatase 76 Total Protein 6.8 Albumin 3.6 Globulin 3.2 Albumin/Globulin Ratio 1.1 Diagnostic Findings Chest X-Ray 05/23/25 08:02 XR chest 2V PA/lateral CLINICAL HISTORY: hypoxia COMPARISON STUDY: 05/21/2025 FINDINGS: Stable cardiomegaly with mild pulmonary vascular congestion. Stable stranding opacity in the lung bases, left greater than right. No pleural effusion or pneumothorax seen. IMPRESSION: Stable exam. ACT 112: Negative or not required by law. Electronically signed by: Ciro Niño M.D. 05/23/2025 11:13 AM PG Care Time/CCT Total # of Minutes Spent Total Time Spent with Patient: Total time spent is greater than 50% in coordination of care (as documented) at patient's floor/unit and/or counseling patient: Coding Level of Care Code 14727 SUB INP/OBS CARE 3/50MIN Diagnoses Heart disease I51.9 Primary hypertension I10 Hypertension type: primary hypertension Hypothyroidism E03.9 Coronary artery disease involving [place] coronary artery of [place] heart with angina pectoris I25.119 Associated angina: with unspecified form of angina Coronary Disease-Associated Artery/Lesion type: [place] artery [place] vs. transplanted heart: [place] heart Mixed hyperlipidemia E78.2 Hyperlipidemia type: mixed hyperlipidemia (2) HTN (hypertension) Hypertension type: primary hypertension Qualified Code(s): I10 - Essential (primary) hypertension (4) CAD (coronary artery disease) Associated angina: with unspecified form of angina Coronary Disease-Assoc iated Artery/Lesion type: [place] artery [place] vs. transplanted heart: [place] heart Qualified Code(s): I25.119 - Atherosclerotic heart disease of [place] coronary artery with unspecified angina pectoris (5) Hyperlipidemia Hyperlipidemia type: mixed hyperlipidemia Qualified Code(s): E78.2 - Mixed hyperlipidemia
[2025-05-23 15:09] VITALS: BP 105/66; TEMP 97.7
--- NOTE | 2025-05-23 16:20 | Discharge Summary ---
Discharge Summary Date of Service May 23, 2025 Principal Dx & Hospital Course #1 = Principal Diagnosis (1) Heart disease: (2) HTN (hypertension): (3) Hypothyroidism: (4) CAD (coronary artery disease): (5) Hyperlipidemia: Plan 89-year-old male with a past medical history of coronary artery disease, hypertension, hypothyroidism, history of AAA, presents to the hospital with chest pain and found to have multifocal pneumonia and NSTEMI: # NSTEMI #history of angina - Patient was on a heparin drip for 24 hours, reviewed with cardiology on 1229 and they do not believe the patient requires heparin furthermore and this has been stopped. -Patient with significant rise in troponin, denies any current chest pain. Patient's troponins at his highest were 10,322, have decreased to 3628, No need to trend. -Continue low-dose beta-keely, aspirin - continue home medications including isosorbide, Ranexa, simvastatin - Echocardiogram indicates LVH, EF of 30 to 35% with moderate anterior wall hypokinesis, lateral wall akinesis and grade 1 diastolic dysfunction. - Appreciate cardiology management, Please refer to their documentation for further input. #Bilateral lower lobe pneumonia #acute hypoxic respiratory failure -Pt was on intravenous antibiotics, transition to oral antibiotics to finish course of treatment on discharge. - Sputum cultures indicate haemophilus influenza. -Viral panel negative -CDL INSTRUCTOR evaluation Appreciated, will benefit from outpatient dental evaluation. -Soft diet -IS/ACapella -oxygen support as needed, continue to wean as tolerated - Home oxygen evaluation, Indicates no need for oxygen at this time. #Hyperbilirubinemia -Continue to trend, possibly due to acute infectious process - this has resolved. #Hypomagnesemia -Replete as needed based on labs #Type 2 diabetes mellitus -Consider sliding scale, diabetic diet #hypothyroidism -Continue home levothyroxine dosing #Hyponatremia - continue to monitor, within close range - Normalized, likely due to acute infectious process. Admission HPI Per Admitting Provider 89-year-old male with a past medical history as below presents to the hospital with complaints of chest discomfort which he describes as ongoing for at least 1 week. He mentions that his chest pain has been localized to both sides, next to the sternum. He describes the pain as pressure-like. He mentions that he took 2 nitroglycerin overnight at around 3 and 330 with some mild improvement. He describes it being as short of breath with this chest pain. He describes the chest pain as intermittent, with no nausea or vomiting. He also has had a cough which has been intermittently productive of clear sputum. Describes having some blood-tinged to room over the last 24 hours. He mentions he has had some chills, and subjective fevers but has not taken his temperature. His appetite has been limited due to him not having dentures and poor dentition. He denies having any abdominal discomfort, no diarrhea. He mentions that his chest pain had progressively worsened and for this reason he decided to seek medical care. Discharge Plan Discharge Items Patient Disposition: Home - Home Health Services Reason For Visit: NSTEMI, PNUMONIA Discharge Diagnosis: Pneumonia NSTEMI Condition on Discharge: Serious Activity: Resume your previous activity Lifting: Gradually increase as tolerated Bathing: No limitations Exercise/Sports: Gradually increase as tolerated Driving/Machine Use: Resume 3 days after discharge Weightbearing: Full weightbearing Non-emergency contact: Primary Care Provider and Refrigeration Systems Installer Call non-emergency contact if: you have any medication questions, your symptoms worsen, your pain is not controlled, your pain is worsening and you have a fever Follow-up/Referrals: Kenrick Live MD [Physician] - Pro,Kenrick House MD [Primary Care Provider] - Diet: Heart Healthy Addtl Attending Provider Instructions: Please follow-up with your primary care physician and desktop publishing specialist after leav ing the hospital. You will be discharged home with antibiotics to finish treatment for your pneumonia. Pending Studies at Discharge: No Stand-Alone Forms: My [facility], Smoking Cessation Medications and DC Order Prescriptions: New doxycycline hyclate 100 mg Capsule 100 mg PO BID 4 Days Qty: 8 0RF metoprolol tartrate 25 mg Tablet 12.5 mg PO BID 30 Days Qty: 30 0RF cefpodoxime 200 mg tablet 200 mg PO BID 5 Days Qty: 10 0RF Rx Instructions: must administer with a meal/food Continued isosorbide mononitrate 10 mg tablet 10 mg PO BID Qty: 180 3RF Rx Instructions: give doses 7 hrs apart nitroglycerin 0.4 mg tablet, sublingual 0.4 mg SL Q5M PRN (Reason: chest pain) Qty: 20 3RF ranolazine 500 mg tablet extended release 12 hr 500 mg PO BID Qty: 180 3RF simvastatin 80 mg tablet See Rx Instructions .ROUTE .COMPLEX Qty: 90 3RF Dose Instruction: TAKE 1 TABLET BY MOUTH ONCE DAILY IN THE EVENING Rx Instructions: TAKE 1 TABLET BY MOUTH ONCE DAILY IN THE EVENING cholecalciferol (vitamin D3) 50 mcg (2,000 unit) capsule 50 mcg PO DAILY aspirin [Sujey Low Dose Aspirin] 81 mg Tablet,Delayed Release (Dr/Ec) 81 mg PO QAM Patient Comments: takes qam lidocaine 5 % adhesive patch,medicated 1 patch transdermal Q12H Rx Instructions: REMOVE DAILY AT 2100 levothyroxine 50 mcg tablet 50 mcg PO QAM Rx Instructions: TAKE 1 TABLET BY MOUTH ONCE DAILY IN THE MORNING Discontinued atenolol 25 mg tablet 12.5 mg PO QAM Qty: 45 3RF Discharge Orders: Discharge Order (Routine); Ordered 05/23/25 Ordered By: Moni Luu Admission Data Admit Date/Time: 05/21/25 14:54 Attending Provider: Moni Luu Admit Provider: Moni Luu Primary Care Provider: Kenrick Morrow Other Providers: Moni Luu; Miah Jeffries; Kenrick Live; Sam Frank; Mika Ruff; Mariusz Gibbs Jr; Addison Botello; Laxmi Regan; Ting Noriega; John Lau; John Lucero; Estefani Blackwell; Jonathan Saucedo; Brynn Lopez; Jonathan Pete; Chao Francois; Dwight Hardy; Kanu Patton; Anastasiia Rodriguez; Dione Goldberg Hospital Stay Data Consultations 05/21/25 11:06 Consult Cardiology Routine 05/21/25 15:17 ED Decision to Admit Stat Diagnostic Imagining Performed Chest X-Ray 05/23/25 08:02 XR chest 2V PA/lateral CLINICAL HISTORY: hypoxia COMPARISON STUDY: 05/21/2025 FINDINGS: Stable cardiomegaly with mild pulmonary vascular congestion. Stable stranding opacity in the lung bases, left greater than right. No pleural effusion or pneumothorax seen. IMPRESSION: Stable exam. ACT 112: Negative or not required by law. Electronically signed by: Ciro Niño M.D. 05/23/2025 11:13 AM 05/21/25 10:45 CT angio chest PE protocol Stat 05/21/25 12:25 CT angio abdomen pelvis w con Stat Pending Results Patient Have Any Pending Studies at Discharge: No Discharge Instructions Given to Patient (Per Discharging Provider) Please follow-up with your primary care physician and desktop publishing specialist after leaving the hospital. You will be discharged home with antibiotics to finish treatment for your pneumonia. Total Time Total Time Spent Total Time Spent (In Minutes): Greater than 45 minutes was spent in the discharge coordination and care of this patient. Coding Level of Care Code 86047 INP/OBS DISCH >30 MIN Diagnoses Heart disease I51.9 Primary hypertension I10 Hypertension type: primary hypertension Hypothyroidism E03.9 Coronary artery disease involving [place] coronary artery of [place] heart with angina pectoris I25.119 Coronary Disease-Associated Artery/Lesion type: [place] artery [place] vs. transplanted heart: [place] heart Associated angina: with unspecified form of angina Mixed hyperlipidemia E78.2 Hyperlipidemia type: mixed hyperlipidemia
[2025-05-23 16:33] VITALS: PULSE 87
== END 2025-05-23 17:28 | disposition home health service (06) | DRG 280 ==
LOC: ED 09:12 → 2S 14:54